=== PATIENT | female | born 1995 | race Caucasian/White ===

== ENCOUNTER → 2016-04-02 | Outpatient (CLI) | payer BC ==
--- NOTE | 2016-04-02 16:13 | US ---
EXAMINATION TYPE: US abdomen complete DATE OF EXAM: 04/02/2016 3:54 PM COMPARISON: Multiple US in PACS CLINICAL HISTORY: R10.12 ABD PAIN. LUQ pain, pt states history of mono EXAM MEASUREMENTS: Liver Length: 14.7 cm Gallbladder Wall: 0.1 cm CBD: 0.5 cm Spleen: 9.8 cm Right Kidney: 10.1 x 3.7 x 4.4 cm Left Kidney: 10.5 x 4.6 x 5.0 cm TECHNOLOGIST IMPRESSION: wnl Pancreas: wnl Liver: wnl Gallbladder: wnl Evidence for sonographic Rogel's sign: No CBD: wnl Spleen: wnl Right Kidney: wnl Left Kidney: wnl Upper IVC: wnl Abd Aorta: wnl Results called to Nando BELL at [facility] at time of exam IMPRESSION: 1. Normal abdomen ultrasound
== END | disposition home or self-care (01) ==
LOC: RADUSWWP 15:38
PROVIDERS: ATTEND Family Medicine
DX: R10.12 Left upper quadrant pain (principal)
CPT/HCPCS: 76700

== ENCOUNTER 2017-08-08 21:58 | Outpatient (CLI) | payer BC, OTHER ==
[2017-08-08 23:02] VITALS: BP 124/67; PULSE 98; RESP 15; TEMP 98
--- NOTE | 2017-08-09 00:10 | P.MSEPDOC ---
Presenting Problems - Arrival Data Date of Arrival on Unit: 08/08/17 Time of Arrival on Unit: 22:03 Mode of Transport: Ambulatory - Complaint OB-Reason for Admission/Chief Complaint: Possible Onset of Labor Comment: Patient complains of contractions since 08/07 but states they are every 7 -9 mins today Medical History - Information : 1 Para: 0 Term: 0 : 0 Abortions: Spontaneous or Elective: 0 Number of Living Children: 0 - Gestational Age Gestational Age by XAVIER (wks/days): 39 Weeks and 4 Days Review of Systems - Review of Systems Constitutional: No problems Breast: No problems ENT: No problems Cardiovascular: No problems Respiratory: No problems Gastrointestinal: No problems Genitourinary: No problems Musculoskeletal: No problems Neurological: No problems Skin: No problems Vital Signs - Temperature Temperature: 98 F Temperature Source: Oral - Pulse Pulse Oximetery Pulse Rate: 98 Pulse Assessment Method: Pulse Oximetry - Respirations Respiratory Rate: 15 Oxygen Delivery Method: Room Air O2 Sat by Pulse Oximetry: 98 - Blood Pressure Right Arm Blood Pressure: 124/67 Blood Pressure Mean: 86 Blood Pressure Source: Automatic Cuff Medical Screen Scoring (Pre) - Cervical Exam Dilation: 1-3 cm = 1 Effacement: More than 50% = 2 Membranes: Intact - Uterine Contractions Frequency: > 5 minutes apart = 1 Duration: N/A Intensity: N/A - Maternal Vital Signs Maternal Temperature: N/A Maternal Blood Pressure: N/A Signs of Preeclampsia: N/A Maternal Respirations: N/A - Pain Assessment Pain Location and Character: Abdomen Pain Scale Used: Numeric (1 - 10) Pain Intensity: 4 Pain Management Goal: 2 Pain Description: *Acute, Cramping Pain Radiation Location: none Pain Frequency: Intermittent Pain Duration: 1 Pain Duration Units: Days Pain Behavior: Fidgeting Effects of Pain: none Pain Aggravating Factors: Contractions - Maternal Trauma Maternal Trauma: N/A - Assessment Baseline FHR: 125 Heart Rate - NICHD Category: Category I (Normal) = 0 NST: Reactive Position: N/A Station: N/A - Total Score Total Score (Pre): 4 - Level of Risk Level of Risk: Low (0-5) Physician Notification (Pre) - Physician Notified Physician Notified Date: 08/08/17 Physician Notified Time: 22:30 Physician/Practitioner Notifed:: Dr Sher New Order Received: Yes Medical Screen Scoring (Post) - Cervical Exam Dilation: 1-3 cm = 1 Effacement: More than 50% = 2 Membranes: Intact - Uterine Contractions Frequency: > 5 minutes apart = 1 Duration: N/A Intensity: N/A - Maternal Vital Signs Maternal Temperature: N/A Maternal Blood Pressure: N/A Signs of Preeclampsia: N/A Maternal Respirations: N/A - Assessment Heart Rate: 125 Heart Rate - NICHD Category: Category I (Normal) = 0 NST: Reactive Position: N/A Station: N/A - Total Score Total Score (Post): 4 - Post Treatment Level of Risk Post Treatment Level of Risk: Low (0-5) Disposition - Disposition OB Disposition: Discharge to home, Written follow up instructions reviewed Discharge Date: 08/08/17 Discharge Time: 23:38 I agree with the RN Medical Screening Exam: Yes Risk & Benefit of care provided described in d/c instruction: Yes Diagnosis: FALSE LABOR AT OR AFTER 37 COMPLETED WEEKS OF GESTATION
== END 2017-08-08 23:43 | disposition home or self-care (01) ==
LOC: FBPOP 21:58
PROVIDERS: ATTEND Obstetrics & Gynecology
DX: O47.1 False labor at or after 37 completed weeks of gestation (principal); Z3A.39 39 weeks gestation of pregnancy
CPT/HCPCS: 59025; 99213

== ENCOUNTER 2017-08-09 16:40 | Inpatient (IN) | payer BC, OTHER ==
[2017-08-09] MEDS ORDERED: TERBUTALINE 1 MG/ML VIAL SQ PRN (17:50)
[2017-08-09] MEDS ORDERED: OXYTOCIN 10 UNIT/ML 1 ML VIAL IM PRN (17:50)
[2017-08-09] MEDS ORDERED: CARBOPROST TROMETHAMINE 250 MCG/ML 1 ML AMP IM PRN (17:50)
[2017-08-09] MEDS ORDERED: METHYLERGONOVINE 0.2 MG/ML 1 ML AMP IM PRN (17:50)
[2017-08-09] MEDS ORDERED: LIDOCAINE 1% (PF) 10 MG/ML (30 ML SDV) SQ PRN (17:50)
[2017-08-09 17:54] VITALS: BMI 25.6
[2017-08-09] MEDS ORDERED: OXYTOCIN 20 UNITS/1000 ML NS 1,000 ML IV SCH ×2 (18:00→23:05)
[2017-08-09 18:01] LABS: Basophils % (A) 0 %; Eosinophils # (A) 0.1 k/uL (0-0.7); Eosinophils % (A) 1 %; HCT 44.8 % (34.0-46.0); HGB 15.8 gm/dL (11.4-16.0); Lymphocytes # (A) 1.7 k/uL (1.0-4.8); Lymphocytes % (A) 11 %; MCH 31.1 pg (25.0-35.0); MCHC 35.3 g/dL (31.0-37.0); MCV 88.1 fL (80.0-100.0); Mean Platelet Volume 8.8; Monocytes # (A) 0.3 k/uL (0-1.0); Monocytes % (A) 2 %; Neutrophils % (A) 85 %; Platelet Count 154 k/uL (150-450); RBC 5.09 m/uL (3.80-5.40); RDW 13.9 % (11.5-15.5); WBC 15.3 k/uL (4.0-11.0)
[2017-08-09] MEDS: LACTATED RINGERS 1,000 ML IV SCH ×3 (18:03→19:40)
[2017-08-09] MEDS ORDERED: BUPIVACAINE (PF) 0.25% 30 ML VIAL ONE (18:35)
[2017-08-09] MEDS ORDERED: SODIUM CHLORIDE 0.9% 100 ML BAG ONE (18:35)
[2017-08-09] MEDS ORDERED: fentaNYL (PF) 50 MCG/ML 5 ML AMP ONE (18:35)
[2017-08-09] MEDS ORDERED: ROPIVACAINE 100 MG, fentaNYL (PF) 200 MCG in SODIUM CHLORIDE 0.9% 76 ML EPIDURAL ONE (19:15)
--- NOTE | 2017-08-09 20:13 | P.HPOB ---
History of Present Illness H&P Date: 08/09/17 Chief Complaint: Contractions This is a 21-year-old female 1 para 0 with an estimated date of confinement of 08/11/2017, estimated gestational age of 39-5/7 weeks, who presents to labor and delivery with complaints of contractions that began yesterday and became stronger today. She denied any rupture of membranes. care had been uncomplicated. Her initial care was with Remigio Cortez and then she transferred to Dr. Holly latent . She denies any issues. labs: Blood type-A+ Antibody screen-negative Hemoglobin-14 RPR-nonreactive Hepatitis B surface antigen-negative HIV-nonreactive GC/Chlamydia-negative Rubella-immune Cystic fibrosis screening-positive, patient states the father the baby is negative Genetic screening-within normal limits Urine drug screen-negative One hour Glucola-normal per patient Group B streptococcus-negative Obstetrical history: First Review of Systems Constitutional: Denies chills, Denies fever Eyes: denies blurred vision, denies pain Ears, nose, mouth and throat: Denies headache, Denies sore throat Cardiovascular: Denies chest pain, Denies shortness of breath Respiratory: Denies cough Gastrointestinal: Reports abdominal pain (Contractions) Genitourinary: Reports pelvic pain, Reports Musculoskeletal: Reports low back pain Integumentary: Denies pruritus, Denies rash Neurological: Denies numbness, Denies weakness Psychiatric: Denies anxiety, Denies depression Past Medical History Additional Past Medical History / Comment(s): History concussion, scoliosis History of Any Multi-Drug Resistant Organisms: None Reported Past Surgical History: Tonsillectomy Past Anesthesia/Blood Transfusion Reactions: No Reported Reaction Past Psychological History: Anxiety Smoking Status: Never smoker Past Alcohol Use History: None Reported Past Drug Use History: None Reported - Past Family History Mother Family Medical History: No Reported History Medications and Allergies Home Medications Medication Instructions Recorded Confirmed Type Pnv No.95/Ferrous Fum/Folic AC 1 each PO DAILY 08/09/17 08/09/17 History [ Multivitamin Tablet] Allergies Allergy/AdvReac Type Severity Reaction Status Date / Time No Known Allergies Allergy Verified 08/09/17 16:49 Exam Osteopathic Statement: *. No significant issues noted on an osteopathic structural exam other than those noted in the History and Physical/Consult. - Vital Signs Vital signs: Vital Signs Temp Pulse Resp BP 08/09/17 17:43 97.1 F L 63 18 118/70 08/09/17 17:20 97.0 F L 63 18 118/70 Intake and Output 08/09/17 08/09/17 08/09/17 06:59 14:59 22:59 Other: Weight 63.503 kg HEENT: Within normal limits Heart: Regular rate and rhythm Lungs: Clear to auscultation bilaterally Abdomen: Cervix: On admission is 5 cm/90%/-2 station with bulging bag heart tones: Reactive Contractions: Every 2-3 minutes Extremities: Negative Homans Results Result Diagrams: 08/09/17 17:45 Abnormal Lab Results - Last 24 Hours (Table) 08/09/17 Range/Units 17:45 WBC 15.3 H (4.0-11.0) k/uL Neutrophils # 13.0 H (1.3-7.7) k/uL Assessment and Plan (1) 39 weeks gestation of Current Visit: Yes Status: Acute Code(s): Z3A.39 - 39 WEEKS GESTATION OF SNOMED Code(s): 44798289 Plan: Admission for active labor. Epidural anesthesia if desired. Expectant management.
--- NOTE | 2017-08-09 22:57 | P.PROBDLV ---
Vaginal Delivery Note - . Vaginal Delivery Note: The patient progressed to complete dilation after artificial rupture membranes was carried out shortly after she received an epidural. At that time her heart tones dropped to the 60s and stayed down despite resuscitative measures. Therefore nursing placed a scalp lead through the membranes and rupture membranes with clear fluid. Heart tones did slowly returned to normal and anesthesia was standing by at that time. Her cervix did change fairly rapidly from 5-7 during that time frame. Overall she had an approximate 10-15 minute deceleration with slow return to baseline. Once the heart tones did return to baseline, she had good variability and accelerations. She progressed onto complete dilation and then began pushing. 's head came to a crown. With one further push, the 's head delivered across the perineum followed by the anterior shoulder and a right occiput anterior lie. Nose and mouth were bulb suctioned at the perineum. Nuchal cord times one was reduced around the 's head. With one further push, the remainder the easily delivered and was placed on mother's abdomen. Brisk cry was noted immediately. Cord was clamped and cut and infant was taken to warmer for evaluation. A viable male was noted with scores of 7 at 1 minute and 9 at 5 minutes and infant weight of 7 lbs. 6 oz. Placenta delivered shortly thereafter , intact, with a three-vessel cord. Uterus contracted fairly well after oxytocin was given and uterine massage was carried out. Inspection of the perineum revealed a right periurethral laceration. This area was anesthetized with 1% lidocaine and then sutured with 3-0 Vicryl suture in a running locked fashion. She also did have a left periurethral laceration that was noted to be hemostatic. Estimated blood loss is approximately 200 mL's. Both mother and infant are in stable condition.
--- NOTE | 2017-08-09 22:59 | P.MSEPDOC ---
Presenting Problems - Arrival Data Date of Arrival on Unit: 08/09/17 Time of Arrival on Unit: 16:40 Mode of Transport: Ambulatory - Complaint OB-Reason for Admission/Chief Complaint: Possible Onset of Labor, Pain Comment: contractions Medical History - Information : 1 Para: 0 Term: 0 : 0 Abortions: Spontaneous or Elective: 0 Number of Living Children: 0 - Gestational Age Gestational Age by XAVIER (wks/days): 39 Weeks and 5 Days Review of Systems - Review of Systems Constitutional: No problems Breast: No problems ENT: No problems Cardiovascular: No problems Respiratory: No problems Gastrointestinal: No problems Genitourinary: No problems Musculoskeletal: No problems Neurological: No problems Skin: No problems Vital Signs - Temperature Temperature: 97.1 F - Pulse Right Brachial Pulse Rate: 63 Pulse Assessment Method: Automatic Cuff - Respirations Respiratory Rate: 18 Oxygen Delivery Method: Room Air - Blood Pressure Right Arm Blood Pressure: 118/70 Blood Pressure Mean: 86 Blood Pressure Source: Automatic Cuff Medical Screen Scoring (Pre) - Cervical Exam Dilation: 4-7 cm = 2 Effacement: More than 50% = 2 Membranes: Intact - Uterine Contractions Frequency: > or = 36 weeks =2 Duration: > 40 seconds = 2 Intensity: Contraction palpated strong = 1 - Maternal Vital Signs Maternal Temperature: N/A Maternal Blood Pressure: N/A Signs of Preeclampsia: N/A Maternal Respirations: N/A - Pain Assessment Pain Location and Character: Abdomen Pain Scale Used: Numeric (1 - 10) Pain Intensity: 8 Pain Management Goal: 3 Pain Description: *Acute Pain Frequency: Intermittent Pain Behavior: Facial Grimacing, Guarding, Moving Slowly Pain Aggravating Factors: Contractions Pain Interventions: Non-Nutritive Sucking - Maternal Trauma Maternal Trauma: N/A - Assessment Heart Rate - NICHD Category: Category I (Normal) = 0 NST: Reactive Position: N/A Station: N/A - Total Score Total Score (Pre): 9 - Level of Risk Level of Risk: Medium (6-9) Physician Notification (Pre) - Physician Notified Physician Notified Date: 08/09/17 Physician Notified Time: 17:21 Physician/Practitioner Notifed:: Dr. Sher Spoke With: Dr. Sher New Order Received: Yes - Notification Comment Comment: Lizbeth Terry spoke with Dr. Sher and orders to admit for labor Disposition - Disposition OB Disposition: Admit, LDRP Suite I agree with the RN Medical Screening Exam: Yes Risk & Benefit of care provided described in d/c instruction: Yes Diagnosis: ENCOUNTER FOR FULL-TERM UNCOMPLICATED DELIVERY
[2017-08-09] MEDS ORDERED: diphenhydrAMINE 25 MG CAP PO PRN (23:05)
[2017-08-09] MEDS ORDERED: WITCH HAZEL 1 EACH MED..PAD TOPICAL PRN (23:05)
[2017-08-09] MEDS ORDERED: BENZOCAINE/MENTHOL SPRAY 1 GM/SPRAY AEROSOL TOPICAL PRN (23:05)
[2017-08-09] MEDS ORDERED: LANOLIN CREAM 5 GM TUBE TOPICAL PRN (23:05)
[2017-08-09] MEDS ORDERED: diphenhydrAMINE 50 MG/ML 1 ML VIAL IVP PRN ×2 (23:05)
[2017-08-09] MEDS ORDERED: diphenhydrAMINE 50 MG CAP PO PRN (23:05)
[2017-08-09] MEDS ORDERED: ZOLPIDEM 5 MG TAB PO PRN (23:05)
[2017-08-09] MEDS ORDERED: SIMETHICONE 80 MG CHEWABLE PO PRN (23:05)
[2017-08-09] MEDS ORDERED: HYDROCORTISONE 2.5% RECTAL CREAM 30 GM TUBE RECTAL PRN (23:05)
[2017-08-09] MEDS: IBUPROFEN 600 MG TAB PO PRN (23:47)
[2017-08-10] MEDS: ACETAMINOPHEN TAB 325 MG TAB PO PRN ×3 (02:53→23:39)
--- NOTE | 2017-08-10 08:01 | P.PNOBGVD ---
Subjective - Subjective Principal diagnosis: Status post vaginal delivery day #1 Interval history: Patient is doing well. She is breast-feeding. Lochia is decreasing. Pain is fairly well controlled. Patient reports: Reports appetite normal, Reports voiding normally, Reports pain well controlled, Reports ambulating normally : doing well, nursing well Objective - Latest Vital Signs Latest vital signs: Vital Signs Temp Pulse Resp BP 08/10/17 07:58 97.5 F L 79 16 120/79 08/10/17 03:21 97.9 F 69 16 116/61 08/10/17 01:02 98.0 F 75 18 119/74 08/10/17 00:32 98.2 F 96 18 125/81 08/10/17 00:09 96 18 117/69 08/09/17 23:54 98.9 F 83 18 121/70 08/09/17 23:39 98.9 F 88 18 128/64 08/09/17 23:25 97.6 F 104 H 18 134/60 08/09/17 23:09 102 H 18 133/65 08/09/17 22:59 97.1 F L 63 18 118/70 08/09/17 22:51 97.0 F L 104 H 16 136/61 08/09/17 17:43 97.1 F L 63 18 118/70 08/09/17 17:20 97.0 F L 63 18 118/70 Intake and Output 08/09/17 08/10/17 08/10/17 22:59 06:59 14:59 Intake Total 2000 Balance 1999 Intake: IV 2000 Lactated Ringers 1,000 ml 2000 @ 125 mls/hr IV .Q8H [facility] Rx#:[id number] Other: # Voids 1 1 Weight 63.503 kg - Exam Extremities: Present: normal. Absent: tenderness Abdomen: Present: normal appearance, soft. Absent: distention, tenderness Uterus: Present: normal, firm. Absent: tenderness - Labs Labs: Abnormal Lab Results - Last 24 Hours (Table) 08/09/17 Range/Units 17:45 WBC 15.3 H (4.0-11.0) k/uL Neutrophils # 13.0 H (1.3-7.7) k/uL Assessment and Plan Assessment: Impression is status post vaginal delivery day #1 (1) 39 weeks gestation of Current Visit: Yes Status: Acute Code(s): Z3A.39 - 39 WEEKS GESTATION OF SNOMED Code(s): 05440978 Plan: Continue with care today and anticipate discharge home tomorrow.
[2017-08-10] MEDS: IBUPROFEN 600 MG TAB PO PRN ×2 (08:58→19:18)
[2017-08-10] MEDS: SENNOSIDES-DOCUSATE SODIUM 1 EACH TAB PO SCH ×2 (08:59→20:20)
[2017-08-10 09:47] LABS: Basophils % (A) 0 %; Eosinophils # (A) 0.1 k/uL (0-0.7); Eosinophils % (A) 0 %; HCT 35.8 % (34.0-46.0); Lymphocytes # (A) 1.7 k/uL (1.0-4.8); Lymphocytes % (A) 12 %; MCH 30.8 pg (25.0-35.0); MCHC 34.6 g/dL (31.0-37.0); MCV 89.2 fL (80.0-100.0); Mean Platelet Volume 7.9; Monocytes # (A) 0.5 k/uL (0-1.0); Monocytes % (A) 4 %; Neutrophils # (A) 11.5 k/uL (1.3-7.7); Neutrophils % (A) 83 %; Platelet Count 129 k/uL (150-450); RBC 4.02 m/uL (3.80-5.40); RDW 14.1 % (11.5-15.5); WBC 13.9 k/uL (4.0-11.0)
[2017-08-10 09:55] LABS: HGB 12.4 gm/dL (11.4-16.0)
[2017-08-11] MEDS: IBUPROFEN 600 MG TAB PO PRN (07:53)
[2017-08-11] MEDS: SENNOSIDES-DOCUSATE SODIUM 1 EACH TAB PO SCH (07:53)
--- NOTE | 2017-08-11 08:48 | P.DS ---
Providers Date of admission: 08/09/17 17:20 Expected date of discharge: 08/11/17 Attending physician: Madi Holly Primary care physician: Madi Holly Hospital Course: Patient is doing very well day 2. She is involuting, voiding, and she is tolerating her diet. She voices no complaints. Vital signs are stable and afebrile. Heart regular, lungs clear, extremities without pain. Prescription for Motrin has been provided. It is noted that her abdomen is soft positive bowel sounds noted and her uterus is firm below the umbilicus. Lochia is are also were reported to be light. We'll plan discharged home today. Prescription for Motrin was provided. We'll follow up with me in 6 weeks. Discharge instructions thoroughly reviewed and all questions were answered for her prior to her discharge. She is stable for discharge at this time. Patient Condition at Discharge: Good Plan - Discharge Summary Discharge Rx Participant: No New Discharge Prescriptions: New Ibuprofen [Motrin] 600 mg PO Q6HR PRN #30 tab PRN Reason: Pain No Action Pnv No.95/Ferrous Fum/Folic AC [ Multivitamin Tablet] 1 each PO DAILY Discharge Medication List Pnv No.95/Ferrous Fum/Folic AC [ Multivitamin Tablet] 1 each PO DAILY [History] Ibuprofen [Motrin] 600 mg PO Q6HR PRN #30 tab 08/11/17 [Rx] Follow up Appointment(s)/Referral(s): Madi Holly DO [Primary Care Provider] - 6 Weeks Activity/Diet/Wound Care/Special Instructions: No heavy lifting, limit stairs and driving, and pelvic rest. If any high temperatures, heavy bleeding, or severe pain call my office Discharge Disposition: HOME SELF-CARE
[2017-08-11 09:14] VITALS: BP 119/64; PULSE 59; RESP 18; TEMP 98.1
--- NOTE | 2017-08-12 08:01 | P.MSEPDOC ---
Presenting Problems - Arrival Data Date of Arrival on Unit: 08/09/17 Time of Arrival on Unit: 17:20 Mode of Transport: Ambulatory - Complaint OB-Reason for Admission/Chief Complaint: Possible Onset of Labor, Pain Comment: contractions Medical History - Information : 1 Para: 0 Term: 0 : 0 Abortions: Spontaneous or Elective: 0 Number of Living Children: 0 - Gestational Age Gestational Age by XAVIER (wks/days): 39 Weeks and 5 Days Review of Systems - Review of Systems Constitutional: No problems Breast: No problems ENT: No problems Cardiovascular: No problems Respiratory: No problems Gastrointestinal: No problems Genitourinary: No problems Musculoskeletal: No problems Neurological: No problems Skin: No problems Vital Signs - Temperature Temperature: 98.1 F Temperature Source: Oral - Pulse Right Brachial Pulse Rate: 59 Pulse Assessment Method: Automatic Cuff - Respirations Respiratory Rate: 18 Oxygen Delivery Method: Room Air O2 Sat by Pulse Oximetry: 96 - Blood Pressure Right Arm Blood Pressure: 119/64 Blood Pressure Mean: 82 Blood Pressure Source: Automatic Cuff Medical Screen Scoring (Pre) - Cervical Exam Dilation: 4-7 cm = 2 Effacement: More than 50% = 2 Membranes: Intact - Uterine Contractions Frequency: > or = 36 weeks =2 Duration: > 40 seconds = 2 Intensity: Contraction palpated strong = 1 - Maternal Vital Signs Maternal Temperature: N/A Maternal Blood Pressure: N/A Signs of Preeclampsia: N/A Maternal Respirations: N/A - Pain Assessment Pain Location and Character: Abdomen Pain Scale Used: Numeric (1 - 10) Pain Intensity: 8 Pain Management Goal: 3 Pain Description: *Acute Pain Frequency: Intermittent Pain Behavior: Facial Grimacing, Guarding, Moving Slowly Pain Aggravating Factors: Contractions Pain Interventions: Non-Nutritive Sucking - Maternal Trauma Maternal Trauma: N/A - Assessment Heart Rate - NICHD Category: Category I (Normal) = 0 NST: Reactive Position: N/A Station: N/A - Total Score Total Score (Pre): 9 - Level of Risk Level of Risk: Medium (6-9) Physician Notification (Pre) - Physician Notified Physician Notified Date: 08/09/17 Physician Notified Time: 17:21 Physician/Practitioner Notifed:: Dr. Sher Spoke With: Dr. Sher New Order Received: Yes - Notification Comment Comment: Lizbeth Terry spoke with Dr. Sher and orders to admit for labor Disposition - Disposition OB Disposition: Admit, LDRP Suite Discharge Date: 08/11/17 Discharge Time: 15:08 I agree with the RN Medical Screening Exam: Yes Risk & Benefit of care provided described in d/c instruction: Yes Diagnosis: RELATED CONDITIONS, UNSPECIFIED, THIRD TRIMESTER
== END 2017-08-11 15:09 | disposition home or self-care (01) | DRG 775 ==
LOC: FBPOP 16:40 → 4FBP 17:20
PROVIDERS: ADMIT Obstetrics & Gynecology; ATTEND Obstetrics & Gynecology
PROC: 10E0XZZ Delivery of Products of Conception, External Approach (ICD-10-PCS; principal; 2017-08-09)
PROC: 0UQMXZZ Repair Vulva, External Approach (ICD-10-PCS; 2017-08-09)
PROC: 3E0R3BZ Introduction of Anesthetic Agent into Spinal Canal, Percutaneous Approach (ICD-10-PCS; 2017-08-09)
PROC: 00HU33Z Insertion of Infusion Device into Spinal Canal, Percutaneous Approach (ICD-10-PCS; 2017-08-09)
PROC: 4A1H74Z Monitoring of Products of Conception, Cardiac Electrical Activity, Via Natural or Artificial Opening (ICD-10-PCS; 2017-08-09)
PROC: 10H073Z Insertion of Monitoring Electrode into Products of Conception, Via Natural or Artificial Opening (ICD-10-PCS; 2017-08-09)
DX: O69.81X0 Labor and delivery complicated by cord around neck, without compression, not applicable or unspecified (principal); M41.9 Scoliosis, unspecified; O76 Abnormality in fetal heart rate and rhythm complicating labor and delivery; Z37.0 Single live birth; O71.82 Other specified trauma to perineum and vulva; J45.990 Exercise induced bronchospasm; Z3A.39 39 weeks gestation of pregnancy; Z79.899 Other long term (current) drug therapy; Z86.59 Personal history of other mental and behavioral disorders
CPT/HCPCS: 59025; 85025; 88307; 99213

== ENCOUNTER → 2018-07-07 | Outpatient (CLI) | payer BC, OTHER | LOC: LABWHC1 16:04 | PROVIDERS: ATTEND Obstetrics & Gynecology | DX: N91.2 Amenorrhea, unspecified (principal) | CPT/HCPCS: 36415; 84702 ==

== ENCOUNTER → 2018-10-13 | Outpatient (CLI) | payer BC, OTHER | END | disposition home or self-care (01) | LOC: LABWHC1 08:08 | PROVIDERS: ATTEND Obstetrics & Gynecology | DX: N92.6 Irregular menstruation, unspecified (principal) | CPT/HCPCS: 36415; 84702 ==

== ENCOUNTER → 2020-07-21 | Outpatient (CLI) | payer BC, OTHER ==
--- NOTE | 2020-07-21 15:21 | NM ---
EXAMINATION TYPE: NM hepatobiliary w EF DATE OF EXAM: 07/21/2020 COMPARISON: Ultrasound abdomen 04/02/2016 HISTORY: Right upper quadrant pain TECHNIQUE: After the intravenous administration of 4.7 mCi Tc 99m Mebrofenin hepatobiliary scintigrap hy is performed. Immediate images post injection. FINDINGS: There is satisfactory initial accumulation of tracer by the liver. The gallbladder is visualized wit hin 12 minutes. The small bowel activity is noted within 40 minutes. At one hour 8 ounces of oral e nsure plus is given to mimic CCK and gallbladder ejection fraction is calculated at 75 %, in the norm al range. Therefore there is no scintigraphic evidence of cystic or common bile duct obstruction to suggest acute cholecystitis or gallbladder dyskinesia. IMPRESSION: Exam is within normal limits.
== END | disposition home or self-care (01) ==
LOC: RADNMMAIN 12:52
PROVIDERS: ATTEND Family Medicine
DX: R10.11 Right upper quadrant pain (principal)
CPT/HCPCS: 78226; A9537

== ENCOUNTER 2022-06-18 12:09 | Outpatient (CLI) | payer BC, OTHER ==
[2022-06-18 15:00] VITALS: BP 136/60; PULSE 93; RESP 17; TEMP 97.2
--- NOTE | 2022-06-20 05:00 | P.MSEPDOC ---
Presenting Problems - Arrival Data Date of Arrival on Unit: 06/18/22 Time of Arrival on Unit: 12:09 Mode of Transport: Ambulatory - Complaint OB-Reason for Admission/Chief Complaint: Rule Out PROM Comment: pt thought she had possible gush of fluid at 1145 today, no leaking since, wanted to rule out ROM Medical History - Information : 2 Para: 1 Term: 1 : 0 Abortions: Spontaneous or Elective: 0 Number of Living Children: 1 - Gestational Age Gestational Age by XAVIER (wks/days): 34 Weeks and 6 Days Review of Systems - Review of Systems Constitutional: No problems Breast: No problems ENT: No problems Cardiovascular: No problems Respiratory: No problems Gastrointestinal: No problems Genitourinary: No problems Musculoskeletal: No problems Neurological: No problems Skin: No problems Vital Signs - Temperature Temperature: 97.2 F Temperature Source: Temporal Artery Scan - Pulse Right Brachial Pulse Rate: 93 Pulse Assessment Method: Automatic Cuff - Respirations Respiratory Rate: 17 Oxygen Delivery Method: Room Air - Blood Pressure Right Arm Blood Pressure: 136/60 Blood Pressure Mean: 85 Blood Pressure Source: Automatic Cuff Medical Screen Scoring - Cervical Exam Dilation (cm): 1 Effacement (%): 50 Station: -3 Membranes: Intact - Uterine Contractions Intensity: Mild Resting: Soft to palpation - Assessment - Baby A Baseline FHR: 125 Heart Rate - NICHD Category: Category I (Normal) NST: Reactive Physician Notification - Physician Notified Physician Notified Date: 06/18/22 Physician Notified Time: 12:45 Physician: Dru Vang New Order Received: Yes - Notification Comment Comment: reactive nst, amniosure negative, pt has appt with Dr. Vang tomorrow, Maternal Triage Index - Maternal Triage Index Presenting for scheduled procedure w/no complaint: No - Stat/Priority 1 Stat Priority 1: No - Urgent/Priority 2 Urgent Priority 2: Yes Provider Notified: Dru Vang Provider Notified Time: 12:45 Criteria Met for Priority 2: pt thought she had possible gush of fluid at 1145 today, no leaking since, wanted to rule out ROM Disposition - Disposition OB Disposition: Triage, Discharge to home, Written follow up instructions reviewed Discharge Date: 06/18/22 Discharge Time: 13:40 I agree with the RN Medical Screening Exam: Yes Case reviewed; plan agreed upon as documented in EMR&OBIX.: Yes Diagnosis: FALSE LABOR BEFORE 37 COMPLETED WEEKS OF GEST, THIRD TRI
== END 2022-06-18 13:40 | disposition home or self-care (01) ==
LOC: FBPOP 12:09
PROVIDERS: ATTEND Obstetrics & Gynecology
DX: O47.03 False labor before 37 completed weeks of gestation, third trimester (principal); Z3A.34 34 weeks gestation of pregnancy
CPT/HCPCS: 59025; 84112; 99213

== ENCOUNTER 2022-07-17 07:22 | Inpatient (IN) | payer OTHER, BC ==
[2022-07-17] MEDS ORDERED: TRANEXAMIC ACID IN NACL,ISO-OS 1,000 MG in EMPTY BAG 1 BAG IV PRN (07:48)
[2022-07-17] MEDS ORDERED: miSOPROStoL 200 MCG TAB PO PRN (07:48)
[2022-07-17] MEDS ORDERED: OXYTOCIN 10 UNIT/ML 1 ML VIAL IM PRN (07:48)
[2022-07-17] MEDS ORDERED: CARBOPROST TROMETHAMINE 250 MCG/ML 1 ML AMP IM PRN (07:48)
[2022-07-17] MEDS ORDERED: TERBUTALINE 1 MG/ML VIAL SQ PRN (07:48)
[2022-07-17] MEDS ORDERED: LIDOCAINE 0.5% (PF) 5 MG/ML (50 ML SDV) SQ PRN (07:48)
[2022-07-17] MEDS ORDERED: METHYLERGONOVINE 0.2 MG/ML 1 ML AMP IM PRN (07:48)
[2022-07-17] MEDS ORDERED: OXYTOCIN 30 UNITS/500 ML NS 30 UNIT in SALINE 1 500ML.BAG IV SCH ×2 (08:00→10:58)
--- NOTE | 2022-07-17 08:14 | P.HPOB ---
History of Present Illness H&P Date: 07/17/22 Chief Complaint: Contractions This patient is a pleasant 26-year-old 2 para 1 female estimated date of confinement 07/24/2022 estimated gestational age 39 weeks who presents to labor and delivery with complaints of regular painful contractions since 1:00 this morning. Patient was 2 cm dilated and office last week and is now 5 cm dilated thought to be in active labor. Patient's care is such that she transferred [place] [facility] at approximately 31 weeks from [place] due to social issues (). Patient's was complicated by a subchorionic hemorrhage versus abruption was noted by her other physician. Patient had regular growth ultrasounds with my office and has had regular testing without evidence of compromise. Patient's care has otherwise been uncomplicated. Review of Systems Genitourinary: Reports Menstruation: Reports amenorrhea Past Medical History Past Medical History: No Reported History Additional Past Medical History / Comment(s): History concussion, scoliosis; patient has had a previous term vaginal delivery History of Any Multi-Drug Resistant Organisms: None Reported Past Surgical History: Tonsillectomy Past Anesthesia/Blood Transfusion Reactions: No Reported Reaction Past Psychological History: No Psychological Hx Reported Smoking Status: Never smoker Past Alcohol Use History: None Reported Past Drug Use History: None Reported - Past Family History Mother Family Medical History: No Reported History Medications and Allergies Home Medications Medication Instructions Recorded Confirmed Type Pnv No.95/Ferrous Fum/Folic AC 1 each PO DAILY 08/09/17 06/18/22 History [ Multivitamin Tablet] Sertraline HCl [Zoloft] 50 mg PO DAILY 06/18/22 06/18/22 History Allergies Allergy/AdvReac Type Severity Reaction Status Date / Time No Known Allergies Allergy Verified 06/18/22 12:43 Exam Intake and Output 07/16/22 07/17/22 07/17/22 22:59 06:59 14:59 Other: Weight 66.678 kg - OBG Physical Exam Abdomen: bowel sounds normal, no diffuse tenderness, no bruit present, no guarding noted, no hepatomegaly, no splenomegaly, no mass Vulva: both: normal Vagina: normal moisture, no discharge Cervix: no lesion (cervix is 5 cm dilated 70% effaced), no discharge Uterus: enlarged Results labs: blood type is B positive, rubella immune, RPR is nonreactive, hepatitis B and C negative, HIV is nonreactive, Glucola was normal, most recent growth ultrasound showed baby 5 lbs. 8 oz. with normal anatomy. Group B strep was negative Assessment and Plan Assessment: This is a pleasant 26-year-old 2 para 1 female 39 weeks gestation who is in active labor. Artificial rupture membranes does show mild to moderate meconium-stained fluid. heart tones are category 1. Plan at this time is pain control per patient request and anticipate vaginal delivery. We will alert the cigar packing examiner anesthesia staff in regards the meconium-stained fluid. (1) Normal labor Current Visit: Yes Status: Acute Code(s): O80 - ENCOUNTER FOR FULL-TERM UNCOMPLICATED DELIVERY; Z37.9 - OUTCOME OF DELIVERY, UNSPECIFIED SNOMED Code(s): 93456733 (2) Meconium in amniotic fluid Current Visit: Yes Status: Acute Code(s): P96.83 - MECONIUM STAINING SNOMED Code(s): 642243670 (3) 39 weeks gestation of Current Visit: No Status: Acute Code(s): Z3A.39 - 39 WEEKS GESTATION OF SNOMED Code(s): 43827613
[2022-07-17 08:17] LABS: Basophils % (A) 0 %; Eosinophils # (A) 0.1 k/uL (0-0.7); Eosinophils % (A) 1 %; HCT 39.6 % (34.0-46.0); HGB 13.6 gm/dL (11.4-16.0); Lymphocytes # (A) 2.1 k/uL (1.0-4.8); Lymphocytes % (A) 20 %; MCH 29.4 pg (25.0-35.0); MCHC 34.4 g/dL (31.0-37.0); MCV 85.5 fL (80.0-100.0); Mean Platelet Volume 8.6; Monocytes # (A) 0.4 k/uL (0-1.0); Monocytes % (A) 4 %; Neutrophils # (A) 7.9 k/uL (1.3-7.7); Neutrophils % (A) 75 %; Platelet Count 160 k/uL (150-450); RBC 4.63 m/uL (3.80-5.40); RDW 13.9 % (11.5-15.5); WBC 10.6 k/uL (3.8-10.6)
[2022-07-17] MEDS ORDERED: fentaNYL (PF) 50 MCG/ML 5 ML AMP ONE (08:26)
[2022-07-17] MEDS ORDERED: ROPIVACAINE 5 MG/ML 20 ML AMPULE ONE (08:26)
[2022-07-17] MEDS ORDERED: SODIUM CHLORIDE 0.9% 100 ML BAG ONE (08:26)
[2022-07-17] MEDS: LACTATED RINGERS 1,000 ML IV SCH ×2 (08:33→08:56)
[2022-07-17] MEDS ORDERED: ACETAMINOPHEN ORAL SUSP 160 MG/5 ML CUP PO PRN (10:58)
[2022-07-17] MEDS ORDERED: BENZOCAINE/MENTHOL SPRAY 1 GM/SPRAY AEROSOL TOPICAL PRN (10:58)
[2022-07-17] MEDS ORDERED: diphenhydrAMINE 25 MG CAP PO PRN (10:58)
[2022-07-17] MEDS ORDERED: HYDROCORTISONE 2.5% RECTAL CREAM 30 GM TUBE RECTAL PRN (10:58)
[2022-07-17] MEDS ORDERED: bisacodyL 10 MG SUPP RECTAL PRN (10:58)
[2022-07-17] MEDS ORDERED: SIMETHICONE 80 MG CHEWABLE PO PRN (10:58)
[2022-07-17] MEDS ORDERED: diphenhydrAMINE 50 MG/ML 1 ML VIAL IVP PRN (10:58)
[2022-07-17] MEDS ORDERED: LANOLIN CREAM 5 GM TUBE TOPICAL PRN (10:58)
[2022-07-17] MEDS ORDERED: ZOLPIDEM 5 MG TAB PO PRN (10:58)
[2022-07-17] MEDS: IBUPROFEN 600 MG TAB PO PRN ×2 (11:28→19:18)
--- NOTE | 2022-07-17 12:18 | P.PROBDLV ---
Vaginal Delivery Note - . Vaginal Delivery Note: Normal spontaneous vaginal delivery viable male infant Apgars 8 and 9 delivery time was 1043 hrs. Please see dictated H&P for intimate details of this patient's admission. In brief summary this is a pleasant 26-year-old 2 para 1 female 39-0/7 weeks gestation admitted to labor and delivery complaints of contractions since 1 AM. On admission patient is 5 cm dilated has artificial rupture membranes for moderate meconium-stained fluid. heart tones are category 1. Labor progresses and she does get an epidural for pain control. Patient thereafter quickly goes to complete pushes the head to the perineum. Posterior perineum is supported we have controlled delivery of the infant's head over the intact perineum. Mouth and nares are bulb suctioned. Data Entry Operator is present for delivery. There is no evidence of a nuchal cord. With gentle downward traction we then have delivery the anterior posterior shoulder and rest this 's body. This is a vigorous viable male infant Apgars are 8 and 9 delivery time was 1043 hrs. After delivery of the the is laid on the mother's abdomen. After the cord is then pulsating, it is doubly clamped and cut. Placenta is then spontaneously delivered intact. Inspection of perineum shows no lacerations and no repairs required. All counts are correct 3. There are no complications. Infant and mother are stable in delivery room.
[2022-07-17] MEDS: ACETAMINOPHEN TAB 325 MG TAB PO PRN ×2 (13:39→20:22)
[2022-07-17] MEDS: SENNOSIDES-DOCUSATE SODIUM 1 EACH TAB PO SCH (23:31)
[2022-07-18] MEDS: SERTRALINE 50 MG TAB PO SCH ×2 (00:04→22:01)
[2022-07-18] MEDS: SENNOSIDES-DOCUSATE SODIUM 1 EACH TAB PO SCH ×2 (02:32→20:13)
[2022-07-18] MEDS: IBUPROFEN 600 MG TAB PO PRN ×4 (02:33→22:01)
[2022-07-18] MEDS: ACETAMINOPHEN TAB 325 MG TAB PO PRN ×3 (05:16→18:50)
--- NOTE | 2022-07-18 06:29 | P.PNOBGVD ---
Subjective - Subjective Patient reports: Reports appetite normal, Reports voiding normally, Reports pain well controlled, Reports ambulating normally : doing well, in NICU (Patient is requiring some oxygen in special care) Objective - Latest Vital Signs Latest vital signs: Vital Signs Temp Pulse Resp BP 07/18/22 00:00 97.5 F L 71 16 106/58 07/17/22 20:00 98 F 71 16 119/72 07/17/22 15:13 98.1 F 80 18 121/65 07/17/22 12:55 98.2 F 74 18 124/75 07/17/22 12:25 98.3 F 64 18 118/76 07/17/22 11:55 98.6 F 68 18 128/71 07/17/22 11:40 98.4 F 69 18 123/70 07/17/22 11:25 80 133/70 07/17/22 11:10 98.0 F 77 18 121/77 07/17/22 10:55 98.5 F 85 18 119/78 07/17/22 07:48 97.4 F L 82 18 141/78 Intake and Output 07/17/22 07/17/22 07/18/22 14:59 22:59 06:59 Intake Total 194.833 Output Total 245 Balance 194.833 -245 Intake: Intake, IV Titration 194.833 Amount Oxytocin 30 Units/500 ml 194.833 Ns 30 unit In Saline 1 500ml.bag @ Per Protocol IV .Q0M [facility] Rx#:[id number] Output: Output, Quantitative 245 Blood Loss Other: # Voids 1 1 Weight 66.678 kg - Exam Lungs: bilateral: normal Chest: Normal S1, Normal S2 Extremities: Present: normal Abdomen: Present: normal appearance, soft Uterus: Present: normal, firm - Labs Labs: Abnormal Lab Results - Last 24 Hours (Table) 07/17/22 Range/Units 07:50 Neutrophils # 7.9 H (1.3-7.7) k/uL Assessment and Plan Assessment: day #1. Patient is resting without complaints. Vital signs are stable she's afebrile. Uterus is firm nontender she's having normal lochia. Baby did have some mild respiratory issues is receiving some oxygen special care most likely will come out today. Plan is to continue routine care discharge home tomorrow (1) Normal labor Current Visit: Yes Status: Acute Code(s): O80 - ENCOUNTER FOR FULL-TERM UNCOMPLICATED DELIVERY; Z37.9 - OUTCOME OF DELIVERY, UNSPECIFIED SNOMED Code(s): 19367176 (2) Meconium in amniotic fluid Current Visit: Yes Status: Acute Code(s): P96.83 - MECONIUM STAINING SNOMED Code(s): 110782921 (3) 39 weeks gestation of Current Visit: No Status: Acute Code(s): Z3A.39 - 39 WEEKS GESTATION OF SNOMED Code(s): 04974766
[2022-07-18 06:35] LABS: Basophils % (A) 0 %; Eosinophils # (A) 0.1 k/uL (0-0.7); Eosinophils % (A) 1 %; HCT 37.9 % (34.0-46.0); HGB 12.7 gm/dL (11.4-16.0); Lymphocytes # (A) 2.6 k/uL (1.0-4.8); Lymphocytes % (A) 23 %; MCH 29.5 pg (25.0-35.0); MCHC 33.6 g/dL (31.0-37.0); MCV 87.9 fL (80.0-100.0); Mean Platelet Volume 8.6; Monocytes # (A) 0.5 k/uL (0-1.0); Monocytes % (A) 4 %; Neutrophils # (A) 7.9 k/uL (1.3-7.7); Neutrophils % (A) 70 %; Platelet Count 152 k/uL (150-450); RBC 4.31 m/uL (3.80-5.40); RDW 14.1 % (11.5-15.5); WBC 11.2 k/uL (3.8-10.6)
[2022-07-18 08:55] VITALS: TEMP 97.8
[2022-07-19] MEDS: ACETAMINOPHEN TAB 325 MG TAB PO PRN ×2 (01:15→07:19)
[2022-07-19] MEDS: IBUPROFEN 600 MG TAB PO PRN ×2 (05:00→13:30)
--- NOTE | 2022-07-19 06:26 | P.PNOBGVD ---
Subjective - Subjective Patient reports: Reports appetite normal, Reports voiding normally, Reports pain well controlled, Reports ambulating normally : doing well, in NICU Objective - Latest Vital Signs Latest vital signs: Vital Signs Temp Pulse Resp BP Pulse Ox 07/19/22 00:00 97.8 F 86 16 124/82 07/18/22 16:00 97.8 F 67 16 121/83 07/18/22 08:45 97.8 F 92 16 120/73 99 Intake and Output 07/18/22 07/18/22 07/19/22 14:59 22:59 06:59 Other: # Voids 1 1 1 - Exam Lungs: bilateral: normal Chest: Normal S1, Normal S2 Extremities: Present: normal Abdomen: Present: normal appearance, soft Uterus: Present: normal, firm - Labs Labs: Abnormal Lab Results - Last 24 Hours (Table) 07/18/22 Range/Units 05:53 WBC 11.2 H (3.8-10.6) k/uL Neutrophils # 7.9 H (1.3-7.7) k/uL Assessment and Plan Assessment: day #2. Patient continues to well without complaints. Vital signs are stable she's afebrile. Uterus is firm nontender she's having normal lochia. My impression this is a normal course. Plan is to continue routine care discharge home later today. (1) Normal labor Current Visit: Yes Status: Acute Code(s): O80 - ENCOUNTER FOR FULL-TERM UNCOMPLICATED DELIVERY; Z37.9 - OUTCOME OF DELIVERY, UNSPECIFIED SNOMED Code(s): 36854182 (2) Meconium in amniotic fluid Current Visit: Yes Status: Acute Code(s): P96.83 - MECONIUM STAINING SNOMED Code(s): 758248350 (3) 39 weeks gestation of Current Visit: No Status: Acute Code(s): Z3A.39 - 39 WEEKS GESTATION OF SNOMED Code(s): 06889709
--- NOTE | 2022-07-19 06:29 | P.DS ---
Providers Date of admission: 07/17/22 07:41 Expected date of discharge: 07/19/22 Attending physician: Dru Vang Primary care physician: Stated None - Discharge Diagnosis(es) (1) Normal labor Current Visit: Yes Status: Acute (2) Meconium in amniotic fluid Current Visit: Yes Status: Acute (3) 39 weeks gestation of Current Visit: No Status: Acute Hospital Course: Please see dictated H&P for intimate details of this patient's admission. Brief summary this pleasant 26-year-old 2 para 1 female 39 weeks gestation admitted to labor and delivery in active labor. Patient quickly goes on have a vaginal delivery viable male . Please see dictated delivery note. hemorrhage 2 patient's felt be stable for discharge home follow up with me in 6 weeks. Procedures: Normal spontaneous vaginal delivery Patient Condition at Discharge: Good Plan - Discharge Summary New Discharge Prescriptions: New Ibuprofen [Motrin] 600 mg PO Q6HR PRN #40 tab PRN Reason: Mild Pain (Scale 1 To 3) No Action Pnv No.95/Ferrous Fum/Folic AC [ Multivitamin Tablet] 1 each PO DAILY Sertraline HCl [Zoloft] 50 mg PO DAILY Discharge Medication List Pnv No.95/Ferrous Fum/Folic AC [ Multivitamin Tablet] 1 each PO DAILY 08/09/17 [History] Sertraline HCl [Zoloft] 50 mg PO DAILY 06/18/22 [History] Ibuprofen [Motrin] 600 mg PO Q6HR PRN #40 tab 07/19/22 [Rx] Follow up Appointment(s)/Referral(s): Dru Vang MD [STAFF PHYSICIAN] - 08/27/22 9:30 am Patient Instructions/Handouts: Vaginal Delivery (DC) Activity/Diet/Wound Care/Special Instructions: No intercourse or anything per vagina for 6 weeks. Please call if any fever, chills, excessive vaginal bleeding, and/or abdominal pain Discharge Disposition: HOME SELF-CARE
[2022-07-19] MEDS: SENNOSIDES-DOCUSATE SODIUM 1 EACH TAB PO SCH (07:18)
[2022-07-19 07:43] VITALS: BP 109/74; PULSE 94; RESP 18
== END 2022-07-19 13:30 | disposition home or self-care (01) | DRG 807 ==
LOC: FBPOP 07:22 → 4FBP 07:41
PROVIDERS: ADMIT Obstetrics & Gynecology; ATTEND Obstetrics & Gynecology
PROC: 10E0XZZ Delivery of Products of Conception, External Approach (ICD-10-PCS; principal; 2022-07-17)
DX: O77.0 Labor and delivery complicated by meconium in amniotic fluid (principal); Z37.0 Single live birth; M41.9 Scoliosis, unspecified; Z3A.39 39 weeks gestation of pregnancy; Z79.899 Other long term (current) drug therapy
CPT/HCPCS: 85025; 86850; 86900; 86901; 88307

== ENCOUNTER 2022-07-27 08:12 | Emergency (ER) | payer BC, OTHER ==
[2022-07-27 08:16] VITALS: PULSE 72
[2022-07-27] MEDS ORDERED: KETOROLAC 15 MG/ML 1 ML VIAL IVP STA ×2 (08:52→10:41)
[2022-07-27] MEDS ORDERED: SODIUM CHLORIDE 0.9% 1,000 ML IV STA (08:52)
[2022-07-27] MEDS ORDERED: ACETAMINOPHEN TAB 500 MG TAB PO STA (08:58)
--- NOTE | 2022-07-27 09:03 | ED ---
General Adult HPI - General Chief complaint: Abdominal Pain Stated complaint: Back/Abd pain Time Seen by Provider: 07/27/22 08:24 Source: patient, RN notes reviewed, old records reviewed Mode of arrival: ambulatory Limitations: no limitations - History of Present Illness Initial comments: This is a nontoxic-appearing 26-year-old female presents to the emergency room with right flank pain radiating to her right groin that started at 2 AM. Patient states feels similar to when she had a kidney stone a year ago. Denies any nausea vomiting or fevers. Does state she has a headache. She is 1 week vaginal delivery no complications of her second child 7 pounds. Is still having some vaginal bleeding. -: hour(s) (7) Location: left (flank) Radiation: non-radiation (left lower abdomen) Improves with: none Worsens with: none Associated Symptoms: headaches - Related Data Home Medications Medication Instructions Recorded Confirmed Pnv No.95/Ferrous Fum/Folic AC 1 each PO DAILY 08/09/17 07/17/22 [ Multivitamin Tablet] Sertraline HCl [Zoloft] 50 mg PO DAILY 06/18/22 07/17/22 Previous Rx's Medication Instructions Recorded Ibuprofen [Motrin] 600 mg PO Q6HR PRN #40 tab 07/19/22 Allergies Allergy/AdvReac Type Severity Reaction Status Date / Time No Known Allergies Allergy Verified 07/27/22 08:16 Patient : No Review of Systems ROS Statement: Those systems with pertinent positive or pertinent negative responses have been documented in the HPI. ROS Other: All systems not noted in ROS Statement are negative. Past Medical History Past Medical History: No Reported History Additional Past Medical History / Comment(s): History concussion, scoliosis; patient has had a previous term vaginal delivery History of Any Multi-Drug Resistant Organisms: None Reported Past Surgical History: Tonsillectomy Past Anesthesia/Blood Transfusion Reactions: No Reported Reaction Past Psychological History: No Psychological Hx Reported Smoking Status: Never smoker Past Alcohol Use History: None Reported Past Drug Use History: None Reported - Past Family History Mother Family Medical History: No Reported History General Exam Limitations: no limitations General appearance: alert, in no apparent distress Head exam: Present: atraumatic, normocephalic Eye exam: Present: normal appearance. Absent: scleral icterus, conjunctival injection, periorbital swelling, periorbital tenderness ENT exam: Present: mucous membranes moist Neck exam: Present: full ROM. Absent: meningismus Respiratory exam: Present: normal lung sounds bilaterally. Absent: respiratory distress, accessory muscle use Cardiovascular Exam: Present: regular rate GI/Abdominal exam: Present: soft. Absent: distended, tenderness, guarding, rebound, rigid Extremities exam: Present: normal capillary refill. Absent: tenderness, pedal edema, calf tenderness Back exam: Present: normal inspection, full ROM. Absent: tenderness, CVA tenderness (R), CVA tenderness (L), rash noted Neurological exam: Present: alert, oriented X3 Psychiatric exam: Present: normal affect, normal mood Skin exam: Present: warm, dry, normal color. Absent: cyanosis, diaphoretic, petechiae, pallor Course Vital Signs 07/27/22 08:13 Temperature 97.6 F Pulse Rate 72 Respiratory 18 Rate Blood Pressure 118/77 - Reevaluation(s) Reevaluation #1: 07/27/22 10:41 Lengthy conversation was held with patient regarding use of Toradol and Flomax along with morphine for pain while breast-feeding. She is agreeable to pumping and dumping for the next 24-48 hours. Time: 10:41 Medical Decision Making - Medical Decision Making Was pt. sent in by a medical professional or institution (, PA, TRANSPORTATION MUSEUM HELPER, urgent care, hospital, or shelter...) When possible be specific @ -No Did you speak to anyone other than the patient for history (EMS, parent, family, police, friend...)? What history was obtained from this source @ -No Did you review nursing and triage notes (agree or disagree)? Why? @ -I reviewed and agree with nursing and triage notes Were old charts reviewed (outside hosp., previous admission, EMS record, old EKG, old radiological studies, urgent care reports/EKG's, shelter records)? Report findings @ -No old charts were reviewed Differential Diagnosis (chest pain, altered mental status, abdominal pain women, abdominal pain men, vaginal bleeding, weakness, fever, dyspnea, syncope, headache, dizziness, GI bleed, back pain, seizure, CVA, palpatations, mental health, musculoskeletal)? @ -UTI, kidney stone, pyelonephritis, hydronephrosis EKG interpreted by me (3pts min.). @ -n/a X-rays interpreted by me (1pt min.). @ -None done CT interpreted by me (1pt min.). @ -Yes stone 4mm obstructing distal right ureter and right pole with hydronephrosis U/S interpreted by me (1pt. min.). @ -None done What testing was considered but not performed or refused? (CT, X-rays, U/S, labs)? Why? @ -None What meds were considered but not given or refused? Why? @ -None Did you discuss the management of the patient with other professionals (professionals i.e. , PA, TRANSPORTATION MUSEUM HELPER, lab, RT, psych nurse, social services specialist, automobile upholsterer apprentice, teacher, district fire management officer, skilled nursing case manager)? Give summary @ -No Was smoking cessation discussed for >3mins.? @ -No Was critical care preformed (if so, how long)? @ -No Were there social determinants of health that impacted care today? How? (Homelessness, low income, unemployed, alcoholism, drug addiction, transportation, low edu. Level, literacy, decrease access to med. care, detention, rehab)? @ -No Was there de-escalation of care discussed even if they declined (Discuss DNR or withdrawal of care, Hospice)? DNR status @ -No What co-morbidities impacted this encounter? (DM, HTN, Smoking, COPD, CAD, Cancer, CVA, ARF, Chemo, Hep., AIDS, mental health diagnosis, sleep apnea, morbid obesity)? @ -, hiistory of kidney stones Was patient admitted / discharged? Hospital course, mention meds given and rou te, prescriptions, significant lab abnormalities, going to OR and other pertinent info. @ -Discharged. 26-year-old female presents with right flank pain radiating to her right groin that started at 2 AM. Patient states feels similar to when she had a kidney stone a year ago. Denies any nausea vomiting or fevers. She is 1 week vaginal delivery no complications of her second child, 7 pounds. Is still having some vaginal bleeding but denies pelvic pain. No dysuria. Patient was initially given IV fluids and she was offered Toradol and declined stating that she is breast-feeding. Upon reassessment patient agreeable to receiving a small dose of morphine for her discomfort. Urinalysis shows cloudy urine with large leukocyte esterase, squamous cells and large blood. No evidence of leukocytosis. Electrolytes show blood glucose of 68 patient was given crackers and fluids. CT shows a moderate to severe right-sided hydronephrosis due to mass effect from enlarged uterus or possibly 4 mm distal right ureter calculus. Underlying medullary nephrocalcinosis is present. There is a additional 2 mm nonobstructing mid pole right renal calculus noted. She was then agreeable to receiving Toradol and Flomax after much discussion and agreed to pump and dump for the next 24 hours. She is agreeable to discharge and strict return parameters were discussed. Case discussed with Dr. Alba Undiagnosed new problem with uncertain prognosis? @ -No Drug Therapy requiring intensive monitoring for toxicity (Heparin, Nitro, Insulin, Cardizem)? @ -No Were any procedures done? @ -No Diagnosis/symptom? @ -Obstructing right renal calculi with hydronephrosis Acute, or Chronic, or Acute on Chronic? @ -Acute Uncomplicated (without systemic symptoms) or Complicated (systemic symptoms)? @ -Uncomplicated Side effects of treatment? @ -No Exacerbation, Progression, or Severe Exacerbation? @ -No Poses a threat to life or bodily function? How? (Chest pain, USA, PR, pneumonia, PE, COPD, DKA, ARF, appy, cholecystitis, CVA, Diverticulitis, Homicidal, Suicidal, threat to staff... and all critical care pts) @ -No - Lab Data Result diagrams: 07/27/22 08:58 07/27/22 08:58 Lab Results 07/27/22 07/27/22 07/27/22 Range/Units 08:58 08:58 09:20 WBC 9.3 (3.8-10.6) k/uL RBC 4.75 (3.80-5.40) m/uL Hgb 13.4 (11.4-16.0) gm/dL Hct 40.6 (34.0-46.0) % MCV 85.6 (80.0-100.0) fL MCH 28.2 (25.0-35.0) pg MCHC 32.9 (31.0-37.0) g/dL RDW 14.1 (11.5-15.5) % Plt Count 297 (150-450) k/uL MPV 7.3 Neutrophils % 77 % Lymphocytes % 18 % Monocytes % 3 % Eosinophils % 1 % Basophils % 0 % Neutrophils # 7.2 (1.3-7.7) k/uL Lymphocytes # 1.7 (1.0-4.8) k/uL Monocytes # 0.3 (0-1.0) k/uL Eosinophils # 0.1 (0-0.7) k/uL Basophils # 0.0 (0-0.2) k/uL Sodium 140 (137-145) mmol/L Potassium 3.8 (3.5-5.1) mmol/L Chloride 108 H (98-107) mmol/L Carbon Dioxide 23 (22-30) mmol/L Anion Gap 9 mmol/L BUN 13 (7-17) mg/dL Creatinine 0.78 (0.52-1.04) mg/dL Est GFR (CKD-EPI)AfAm >90 (>60 ml/min/1.73 sqM) Est GFR (CKD-EPI)NonAf >90 (>60 ml/min/1.73 sqM) Glucose 68 L (74-99) mg/dL Calcium 8.8 (8.4-10.2) mg/dL Total Bilirubin 0.5 (0.2-1.3) mg/dL AST 27 (14-36) U/L ALT 24 (4-34) U/L Alkaline Phosphatase 136 H (38-126) U/L Total Protein 6.9 (6.3-8.2) g/dL Albumin 3.9 (3.5-5.0) g/dL Amylase 54 (30-110) U/L Lipase 135 (23-300) U/L Urine Color Light Red Urine Appearance Cloudy H (Clear) Urine pH 6.0 (5.0-8.0) Ur Specific Ethel 1.050 H (1.001-1.035) Urine Protein 3+ H (Negative) Urine Glucose (UA) Negative (Negative) Urine Ketones Trace H (Negative) Urine Blood Large H (Negative) Urine Nitrite Negative (Negative) Urine Bilirubin Negative (Negative) Urine Urobilinogen 2.0 (<2.0) mg/dL Ur Leukocyte Esterase Large H (Negative) Urine RBC >182 H (0-5) /hpf Urine WBC >182 H (0-5) /hpf Ur Squamous Epith Cells 15 H (0-4) /hpf Amorphous Sediment Rare H (None) /hpf Urine Bacteria Occasional H (None) /hpf Urine Mucus Many H (None) /hpf Disposition Clinical Impression: Kidney stone on right side, Hydronephrosis due to obstruction of ureter Disposition: HOME SELF-CARE Condition: Good Instructions (If sedation given, give patient instructions): Kidney Stones (ED), Hydronephrosis (ED) Additional Instructions: Tylenol as needed for pain or discomfort. You can also take Motrin as needed along with Tylenol with codeine as provided however I recommend pumping and dumping breastmilk for 24 hours if taking these medications. Return to the emergency room with a concerning symptoms including fever, persistent nausea vomiting or increased pain. Follow-up with urology as needed. Is patient prescribed a controlled substance at d/c from ED?: No Referrals: Irvin King DO [Primary Care Provider] - 1-2 days Gold Caraballo MD [STAFF PHYSICIAN] - 1-2 days Time of Disposition: 10:56
[2022-07-27 09:11] LABS: Basophils % (A) 0 %; Eosinophils # (A) 0.1 k/uL (0-0.7); Eosinophils % (A) 1 %; HCT 40.6 % (34.0-46.0); HGB 13.4 gm/dL (11.4-16.0); Lymphocytes # (A) 1.7 k/uL (1.0-4.8); Lymphocytes % (A) 18 %; MCH 28.2 pg (25.0-35.0); MCHC 32.9 g/dL (31.0-37.0); MCV 85.6 fL (80.0-100.0); Mean Platelet Volume 7.3; Monocytes # (A) 0.3 k/uL (0-1.0); Monocytes % (A) 3 %; Neutrophils # (A) 7.2 k/uL (1.3-7.7); Neutrophils % (A) 77 %; Platelet Count 297 k/uL (150-450); RBC 4.75 m/uL (3.80-5.40); RDW 14.1 % (11.5-15.5); WBC 9.3 k/uL (3.8-10.6)
[2022-07-27 09:25] LABS: ALT 24 U/L (4-34); AST 27 U/L (14-36); African American GFR (CKD) >90 (>60 ml/min/1.73 sqM); Albumin 3.9 g/dL (3.5-5.0); Alkaline Phosphatase 136 U/L (38-126); Amylase 54 U/L (30-110); Anion Gap 9 mmol/L; Blood Urea Nitrogen 13 mg/dL (7-17); Calcium 8.8 mg/dL (8.4-10.2); Carbon Dioxide 23 mmol/L (22-30); Chloride 108 mmol/L (98-107); Glucose 68 mg/dL (74-99); Lipase 135 U/L (23-300); Non-African American GFR(CKD) >90 (>60 ml/min/1.73 sqM); Potassium 3.8 mmol/L (3.5-5.1); Sodium 140 mmol/L (137-145); Total Bilirubin 0.5 mg/dL (0.2-1.3); Total Protein 6.9 g/dL (6.3-8.2)
[2022-07-27 09:44] LABS: Amorphous Sediment,Urine Rare /hpf; Appearance,Urine Cloudy (Clear); Bacteria,Urine Occasional /hpf; Bilirubin,Urine Negative (Negative); Blood,Urine Large (Negative); Color,Urine Light Red; Glucose,Urine (UA) Negative (Negative); Ketones,Urine Trace (Negative); Leukocyte Esterase,Urine Large (Negative); Mucus,Urine Many /hpf; Nitrite,Urine Negative (Negative); Protein,Urine 3+ (Negative); RBC,Urine >182 /hpf (0-5); Squamous Epithelial Cell,Urine 15 /hpf (0-4); WBC,Urine >182 /hpf (0-5)
[2022-07-27] MEDS ORDERED: MORPHINE SULFATE 2 MG/ML SYRINGE IVP ONE (09:52)
--- NOTE | 2022-07-27 10:26 | CT ---
EXAMINATION TYPE: CT abdomen pelvis wo con DATE OF EXAM: 07/27/2022 HISTORY: right side flank pain. vaginal delivery last week CT DLP: 381.1 mGycm. Automated Exposure Control for Dose Reduction was Utilized. TECHNIQUE: CT scan of the abdomen and pelvis is performed without oral or IV contrast. COMPARISON: Most recent CT January 27, 2014 FINDINGS: Within the limitations of a non-contrast study, the following observations are made. LUNG BASES: No significant abnormality is appreciated. LIVER/GB: No significant abnormality is appreciated. PANCREAS: No significant abnormality is seen. SPLEEN: No significant abnormality is seen. ADRENALS: No significant abnormality is seen. KIDNEYS: Hyperdense renal pyramids bilaterally. No focal left renal calculus or hydronephrosis. There is 2 mm mid pole right renal calculus coronal image 46. BOWEL: No significant abnormality is seen. GENITAL ORGANS: Heterogeneous enlarged anteverted uterus consistent with history of recent full-term and delivery. There is moderate to severe right-sided hydronephrosis. Poor visualization of distal right ureter. A few tiny rounded calcifications in the pelvis favor phleboliths. Possible 4 m m distal right ureter calculus versus phlebolith on axial image 67. LYMPH NODES: No greater than 1cm abdominal or pelvic lymph nodes are appreciated. OSSEOUS STRUCTURES: No significant abnormality is seen. OTHER: No significant additional abnormality is seen. IMPRESSION: Moderate to severe right-sided hydronephrosis due to mass effect from enlarged uterus or possibly 4 mm distal right ureter calculus. Underlying medullary nephrocalcinosis is present. There i s additional 2 mm nonobstructing mid pole right renal calculus also noted.
[2022-07-27] MEDS ORDERED: TAMSULOSIN 0.4 MG CAP.ER.24H PO STA (10:41)
[2022-07-27] MEDS ORDERED: ACET/COD 300 MG/30 MG STARTER PACK 6 TAB BTL PO STA (10:56)
[2022-07-27 11:39] VITALS: BP 129/77; RESP 16; TEMP 98.4
== END 2022-07-27 11:39 | disposition home or self-care (01) ==
LOC: EC 08:12
DX: N13.2 Hydronephrosis with renal and ureteral calculous obstruction (principal); N29 Other disorders of kidney and ureter in diseases classified elsewhere
CPT/HCPCS: 36415; 80053; 82150; 83690; 85025; 81001; 74176; 99284; 96374; 96375; 96361; J2270; J1885

== ENCOUNTER 2023-10-16 22:04 | Emergency (ER) | payer OTHER | END 2023-10-17 00:08 | disposition left against medical advice (07) | LOC: EC 22:04 | DX: Z53.21 Procedure and treatment not carried out due to patient leaving prior to being seen by health care provider (principal) | CPT/HCPCS: 99499 ==

== ENCOUNTER 2023-10-28 10:16 | Emergency (ER) | payer BC, OTHER ==
--- NOTE | 2023-10-28 10:54 | ED ---
Female Urogenital HPI - General Chief complaint: Vaginal Bleeding Stated complaint: 6wks preg,cramping vag bleeding Time Seen by Provider: 10/28/23 10:52 Source: patient, RN notes reviewed Mode of arrival: ambulatory Limitations: no limitations - History of Present Illness Initial comments: 27-year-old female G3, P2 at approximately 6 weeks gestation presenting for vaginal bleeding x 1 week with associated abdominal cramping. States she was seen at [facility] last week where they diagnosed her with a threatened miscarriage. She is unsure what her blood hCG levels or ultrasound showed. She was instructed to follow-up with her OB, however she was unable to make an appointment. She states over the past 2 days, the bleeding has become heavier, reports passing several small clots. She is also having worsening abdominal cramping, worse on the right side. Denies fever, syncope, vomiting. States her hCG level last week was in the 6000's. - Related Data Home Medications Medication Instructions Recorded Confirmed Pnv No.95/Ferrous Fum/Folic AC 1 each PO DAILY 08/09/17 07/17/22 [ Multivitamin Tablet] Sertraline HCl [Zoloft] 50 mg PO DAILY 06/18/22 07/17/22 Previous Rx's Medication Instructions Recorded Ibuprofen [Motrin] 600 mg PO Q6HR PRN #40 tab 07/19/22 Allergies Allergy/AdvReac Type Severity Reaction Status Date / Time No Known Allergies Allergy Verified 07/27/22 08:16 Review of Systems ROS Statement: Those systems with pertinent positive or pertinent negative responses have been documented in the HPI. ROS Other: All systems not noted in ROS Statement are negative. Past Medical History Past Medical History: No Reported History Additional Past Medical History / Comment(s): History concussion, scoliosis; patient has had a previous term vaginal delivery History of Any Multi-Drug Resistant Organisms: None Reported Past Surgical History: Tonsillectomy Past Anesthesia/Blood Transfusion Reactions: No Reported Reaction Past Psychological History: No Psychological Hx Reported Smoking Status: Never smoker Past Alcohol Use History: None Reported Past Drug Use History: None Reported - Past Family History Mother Family Medical History: No Reported History General Exam Limitations: no limitations General appearance: alert, in no apparent distress Head exam: Present: atraumatic, normocephalic, normal inspection Eye exam: Present: normal appearance, PERRL. Absent: scleral icterus, conjunctival injection, periorbital swelling Respiratory exam: Present: normal lung sounds bilaterally. Absent: respiratory distress, wheezes, rales, rhonchi, stridor Cardiovascular Exam: Present: regular rate, normal rhythm, normal heart sounds. Absent: systolic murmur, diastolic murmur, rubs, gallop, clicks GI/Abdominal exam: Present: soft, normal bowel sounds. Absent: distended, tenderness, guarding, rebound, rigid Back exam: Present: normal inspection. Absent: CVA tenderness (R), CVA tenderness (L) Neurological exam: Present: alert, oriented X3 Psychiatric exam: Present: normal affect, normal mood Skin exam: Present: warm, dry, intact, normal color. Absent: rash Course Vital Signs 10/28/23 10/28/23 10:20 12:15 Temperature 97.9 F 97.8 F Pulse Rate 84 64 Respiratory 18 17 Rate Blood Pressure 129/73 115/60 O2 Sat by Pulse 100 100 Oximetry Medical Decision Making - Medical Decision Making Was pt. sent in by a medical professional or institution (Dr. PA, [employer], urgent care, hospital, or custodial...) When possible be specific @ -No Did you speak to anyone other than the patient for history (EMS, parent, family, police, friend...)? What history was obtained from this source @ -No Did you review nursing and triage notes (agree or disagree)? Why? @ -I reviewed and agree with nursing and triage notes Were old charts reviewed (outside hosp., previous admission, EMS record, old EKG, old radiological studies, urgent care reports/EKG's, custodial records)? Report findings @ -No old charts were reviewed Differential Diagnosis (chest pain, altered mental status, abdominal pain women, abdominal pain men, vaginal bleeding, weakness, fever, dyspnea, syncope, headache, dizziness, GI bleed, back pain, seizure, CVA, palpatations, mental health, musculoskeletal)? @ -Differential Vaginal Bleeding: Spontaneous , threatened , molar , ectopic , bloody show, incompetent cervix, abruptioplacenta, placenta previa, uterine rupture, dysfunctional uterine bleeding, hemorrhage, uterine fibroids, this is not meant to be an all-inclusive list. EKG interpreted by me (3pts min.). @ -None X-rays interpreted by me (1pt min.). @ -None done CT interpreted by me (1pt min.). @ -None done U/S interpreted by me (1pt. min.). @ -Ultrasound reveals no evidence of intrauterine gestational sac What testing was considered but not performed or refused? (CT, X-rays, U/S, labs)? Why? @ -None What meds were considered but not given or refused? Why? @ -RhoGAM not indicated as patient is B+ Did you discuss the management of the patient with other professionals (professionals i.e. , PA, [employer], lab, RT, psych nurse, transition social worker, attorney lawyer, teacher, seismology technical officer, gearcase assembler)? Give summary @ -No Was smoking cessation discussed for >3mins.? @ -No Was critical care preformed (if so, how long)? @ -No Were there social determinants of health that impacted care today? How? (Homelessness, low income, unemployed, alcoholism, drug addiction, transportation, low edu. Level, literacy, decrease access to med. care, long term, rehab)? @ -No Was there de-escalation of care discussed even if they declined (Discuss DNR or withdrawal of care, Hospice)? DNR status @ -No What co-morbidities impacted this encounter? (DM, HTN, Smoking, COPD, CAD, Cancer, CVA, ARF, Chemo, Hep., AIDS, mental health diagnosis, sleep apnea, morbid obesity)? @ -None Was patient admitted / discharged? Hospital course, mention meds given and route, prescriptions, significant lab abnormalities, going to OR and other pertinent info. @ -Patient was discharged. Patient was seen and evaluated for vaginal bleeding at approximately 6 weeks gestation. Vital signs are within normal limits. No abdominal tenderness to palpation. Lab work including CBC, CMP, lactic acid remarkable for hemoglobin of 10. Beta hCG was 698 which is significantly decreased from last week as patient states it was in the 6000's. Pelvic ultrasound reveals no evidence of intrauterine gestational sac. Blood type is B+, therefore RhoGAM is not indicated at this time. Discussed diagnosis of spontaneous with patient. Advised to follow-up in 2 days for repeat hCG levels. Return parameters discussed. Patient is agreeable to plan. Case was discussed with my ED attending Dr. Alba. Patient discharged in stable condition. Undiagnosed new problem with uncertain prognosis? @ -No Drug Therapy requiring intensive monitoring for toxicity (Heparin, Nitro, Insulin, Cardizem)? @ -No Were any procedures done? @ -No Diagnosis/symptom? @ -Spontaneous Acute, or Chronic, or Acute on Chronic? @ -Acute Uncomplicated (without systemic symptoms) or Complicated (systemic symptoms)? @ -Uncomplicated Side effects of treatment? @ -No Exacerbation, Progression, or Severe Exacerbation? @ -No Poses a threat to life or bodily function? How? (Chest pain, [place], [place], pneumonia, PE, COPD, DKA, ARF, appy, cholecystitis, CVA, Diverticulitis, Homicidal, Suicidal, threat to staff... and all critical care pts) @ -Not at this time - Lab Data Result diagrams: 10/28/23 11:12 10/28/23 11:12 Lab Results 10/28/23 10/28/23 10/28/23 Range/Units 11:12 11:12 11:12 WBC 10.0 (3.8-10.6) k/uL RBC 4.16 (3.80-5.40) m/uL Hgb 10.1 L (11.4-16.0) gm/dL Hct 32.3 L (34.0-46.0) % MCV 77.6 L (80.0-100.0) fL MCH 24.3 L (25.0-35.0) pg MCHC 31.4 (31.0-37.0) g/dL RDW 14.7 (11.5-15.5) % Plt Count 221 (150-450) k/uL MPV 6.8 Neutrophils % 81 % Lymphocytes % 14 % Monocytes % 4 % Eosinophils % 1 % Basophils % 0 % Neutrophils # 8.1 H (1.3-7.7) k/uL Lymphocytes # 1.4 (1.0-4.8) k/uL Monocytes # 0.4 (0-1.0) k/uL Eosinophils # 0.1 (0-0.7) k/uL Basophils # 0.0 (0-0.2) k/uL Hypochromasia Moderate Sodium 138 (137-145) mmol/L Potassium 3.9 (3.5-5.1) mmol/L Chloride 110 H (98-107) mmol/L Carbon Dioxide 24 (22-30) mmol/L Anion Gap 4 mmol/L BUN 9 (7-17) mg/dL Creatinine 0.62 (0.52-1.04) mg/dL Est GFR (CKD-EPI)AfAm >90 (>60 ml/min/1.73 sqM) Est GFR (CKD-EPI)NonAf >90 (>60 ml/min/1.73 sqM) Glucose 83 (74-99) mg/dL Plasma Lactic Acid Kraig (0.7-2.0) mmol/L Calcium 8.8 (8.4-10.2) mg/dL Total Bilirubin 0.2 (0.2-1.3) mg/dL AST 21 (14-36) U/L ALT 15 (4-34) U/L Alkaline Phosphatase 49 (38-126) U/L Total Protein 6.2 L (6.3-8.2) g/dL Albumin 3.8 (3.5-5.0) g/dL HCG, Quant 698.6 mIU/mL Urine Color Red Urine Appearance Cloudy H (Clear) Urine pH 6.0 (5.0-8.0) Ur Specific [place] 1.028 (1.001-1.035) Urine Protein 1+ H (Negative) Urine Glucose (UA) Negative (Negative) Urine Ketones Trace H (Negative) Urine Blood Large H (Negative) Urine Nitrite Negative (Negative) Urine Bilirubin Negative (Negative) Urine Urobilinogen <2.0 (<2.0) mg/dL Ur Leukocyte Esterase Large H (Negative) Urine RBC >182 H (0-5) /hpf Urine WBC 34 H (0-5) /hpf Ur Squamous Epith Cells 14 H (0-4) /hpf Urine Mucus Moderate H (None) /hpf Blood Type Blood Type Recheck Bld Type Recheck Status 10/28/23 10/28/23 Range/Units 11:12 11:12 WBC (3.8-10.6) k/uL RBC (3.80-5.40) m/uL Hgb (11.4-16.0) gm/dL Hct (34.0-46.0) % MCV (80.0-100.0) fL MCH (25.0-35.0) pg MCHC (31.0-37.0) g/dL RDW (11.5-15.5) % Plt Count (150-450) k/uL MPV Neutrophils % % Lymphocytes % % Monocytes % % Eosinophils % % Basophils % % Neutrophils # (1.3-7.7) k/uL Lymphocytes # (1.0-4.8) k/uL Monocytes # (0-1.0) k/uL Eosinophils # (0-0.7) k/uL Basophils # (0-0.2) k/uL Hypochromasia Sodium (137-145) mmol/L Potassium (3.5-5.1) mmol/L Chloride (98-107) mmol/L Carbon Dioxide (22-30) mmol/L Anion Gap mmol/L BUN (7-17) mg/dL Creatinine (0.52-1.04) mg/dL Est GFR (CKD-EPI)AfAm (>60 ml/min/1.73 sqM) Est GFR (CKD-EPI)NonAf (>60 ml/min/1.73 sqM) Glucose (74-99) mg/dL Plasma Lactic Acid Kraig 0.7 (0.7-2.0) mmol/L Calcium (8.4-10.2) mg/dL Total Bilirubin (0.2-1.3) mg/dL AST (14-36) U/L ALT (4-34) U/L Alkaline Phosphatase (38-126) U/L Total Protein (6.3-8.2) g/dL Albumin (3.5-5.0) g/dL HCG, Quant mIU/mL Urine Color Urine Appearance (Clear) Urine pH (5.0-8.0) Ur Specific [place] (1.001-1.035) Urine Protein (Negative) Urine Glucose (UA) (Negative) Urine Ketones (Negative) Urine Blood (Negative) Urine Nitrite (Negative) Urine Bilirubin (Negative) Urine Urobilinogen (<2.0) mg/dL Ur Leukocyte Esterase (Negative) Urine RBC (0-5) /hpf Urine WBC (0-5) /hpf Ur Squamous Epith Cells (0-4) /hpf Urine Mucus (None) /hpf Blood Type B Positive Blood Type Recheck B Pos Bld Type Recheck Status No Disposition Clinical Impression: Spontaneous Disposition: HOME SELF-CARE Condition: Stable Instructions (If sedation given, give patient instructions): Miscarriage (ED) Additional Instructions: Follow-up as discussed. Please return to the Emergency Department if symptoms worsen or any other concerns. Is patient prescribed a controlled substance at d/c from ED?: No Referrals: Irvin King DO [Primary Care Provider] - 1-2 days Time of Disposition: 13:03
[2023-10-28 11:33] LABS: Basophils % (A) 0 %; Eosinophils # (A) 0.1 k/uL (0-0.7); Eosinophils % (A) 1 %; HCT 32.3 % (34.0-46.0); HGB 10.1 gm/dL (11.4-16.0); Hypochromasia Moderate; Lymphocytes # (A) 1.4 k/uL (1.0-4.8); Lymphocytes % (A) 14 %; MCH 24.3 pg (25.0-35.0); MCHC 31.4 g/dL (31.0-37.0); MCV 77.6 fL (80.0-100.0); Mean Platelet Volume 6.8; Monocytes # (A) 0.4 k/uL (0-1.0); Monocytes % (A) 4 %; Neutrophils # (A) 8.1 k/uL (1.3-7.7); Neutrophils % (A) 81 %; Platelet Count 221 k/uL (150-450); RBC 4.16 m/uL (3.80-5.40); RDW 14.7 % (11.5-15.5)
[2023-10-28 11:42] LABS: ALT 15 U/L (4-34); AST 21 U/L (14-36); African American GFR (CKD) >90 (>60 ml/min/1.73 sqM); Albumin 3.8 g/dL (3.5-5.0); Alkaline Phosphatase 49 U/L (38-126); Anion Gap 4 mmol/L; Blood Urea Nitrogen 9 mg/dL (7-17); Calcium 8.8 mg/dL (8.4-10.2); Carbon Dioxide 24 mmol/L (22-30); Chloride 110 mmol/L (98-107); Glucose 83 mg/dL (74-99); Non-African American GFR(CKD) >90 (>60 ml/min/1.73 sqM); Potassium 3.9 mmol/L (3.5-5.1); Sodium 138 mmol/L (137-145); Total Bilirubin 0.2 mg/dL (0.2-1.3); Total Protein 6.2 g/dL (6.3-8.2)
--- NOTE | 2023-10-28 11:55 | US ---
EXAMINATION TYPE: Transabdominal DATE OF EXAM: 10/28/2023 11:39 AM COMPARISON: NONE CLINICAL INDICATION: Female, 27 years old with history of vaginal bleeding in ; Vaginal blee ding, cramping x 1 week. . EXAM PERFORMED: Transvaginal (TV) and Transabdominal (TA) EXAM MEASUREMENTS: GESTATIONAL AGE / DATING Physician Established: Not yet established. Dates by LMP: (6 weeks/5 days) EDC: 06/17/2024 Dates by First Scan: This is first scan Dates by Current Scan for: No gestational sac seen at this time. MATERNAL ANATOMY Uterus: 10.6 x 6.6 x 6.2 cm. Endometrium measures approximately 1.12 cm -- there appears to be possi ble hypoechoic material without vascularity in the endometrium: 5.7 x 1.8 x 1.9 cm. Right Ovary: Not seen Left Ovary: 3.2 x 1.9 x 2.0 cm. Post CDS / Adnexa: Free fluid seen in cul de sac Presence of free fluid: Yes, in cul de sac Presence of corpus luteal cyst: not seen Presence of subchorionic bleed: N/A GESTATION / SURVEY CRL: Not seen MSD: Not seen Yolk Sac (normal less than 6mm): Not seen Heart Rate: Not seen Rhythm: Not seen IUP: No gestational sac seen at this time. Date of LMP: 09/11/2023 Beta HcG (if available): Not available IMPRESSION: No evidence of intrauterine gestational sac, correlate with B-hCG. If positive, this could represent early , ectopic or spontaneous . Follow up pelvic ultrasound in 5-7 days a nd serial beta hCG studies are recommended.
[2023-10-28 11:58] LABS: HCG,Quantitative Serum 698.6 mIU/mL
[2023-10-28 12:04] LABS: Appearance,Urine Cloudy (Clear); Bilirubin,Urine Negative (Negative); Blood,Urine Large (Negative); Color,Urine Red; Glucose,Urine (UA) Negative (Negative); Ketones,Urine Trace (Negative); Leukocyte Esterase,Urine Large (Negative); Mucus,Urine Moderate /hpf; Nitrite,Urine Negative (Negative); Protein,Urine 1+ (Negative); RBC,Urine >182 /hpf (0-5); Specific Gravity,Urine 1.028 (1.001-1.035); Squamous Epithelial Cell,Urine 14 /hpf (0-4); Urobilinogen,Urine <2.0 mg/dL (<2.0); WBC,Urine 34 /hpf (0-5)
[2023-10-28 13:32] VITALS: BP 111/69; PULSE 70; RESP 18; TEMP 98
== END 2023-10-28 13:32 | disposition home or self-care (01) ==
LOC: EC 10:16
DX: O03.9 Complete or unspecified spontaneous abortion without complication (principal); N93.9 Abnormal uterine and vaginal bleeding, unspecified; Z90.89 Acquired absence of other organs; Z3A.01 Less than 8 weeks gestation of pregnancy
CPT/HCPCS: 36415; 76801; 76817; 80053; 81001; 83605; 84702; 85025; 86900; 86901; 87086; 99284

== ENCOUNTER 2023-11-27 13:18 | Emergency (ER) | payer OTHER ==
[2023-11-27 13:25] VITALS: RESP 16; TEMP 97.9
--- NOTE | 2023-11-27 13:54 | ED ---
Dizziness HPI - General Chief Complaint: Dizziness Stated Complaint: Dizziness-sent by PCP Time Seen by Provider: 11/27/23 13:38 Source: patient, RN notes reviewed Mode of arrival: wheelchair Limitations: no limitations - History of Present Illness Initial Comments: 28-year-old female presenting for lightheadedness x 1 day. States she has had 3 episodes of feeling like she is going to pass out. During the episodes, she states she gets "hot flashes". Over the past 3 days, she has been having a constant headache located at the top of her head. She also states she started Depo shot 3 months ago and has had intermittent vaginal bleeding since then, so she is concerned about her hemoglobin today. States she has had cough and nasal congestion for the past 1.5 weeks with generalized shortness of breath. She feels as though she is "winded more easily". Denies shortness of breath currently, chest pain, pain with inspiration. Denies recent surgery, recent travel. She is a non-smoker. Denies history of blood clots. Denies fevers, chills, vomiting, chest pain - Related Data Home Medications Medication Instructions Recorded Confirmed Ferrous Sulfate [Feosol] 325 mg PO BID 11/27/23 11/27/23 metroNIDAZOLE [Flagyl] 500 mg PO BID 11/27/23 11/27/23 Allergies Allergy/AdvReac Type Severity Reaction Status Date / Time No Known Allergies Allergy Verified 11/27/23 14:09 Review of Systems ROS Statement: Those systems with pertinent positive or pertinent negative responses have been documented in the HPI. ROS Other: All systems not noted in ROS Statement are negative. Past Medical History Past Medical History: No Reported History Additional Past Medical History / Comment(s): History concussion, scoliosis; patient has had a previous term vaginal delivery History of Any Multi-Drug Resistant Organisms: None Reported Past Surgical History: Tonsillectomy Past Anesthesia/Blood Transfusion Reactions: No Reported Reaction Past Psychological History: No Psychological Hx Reported Smoking Status: Never smoker Past Alcohol Use History: None Reported Past Drug Use History: None Reported - Past Family History Mother Family Medical History: No Reported History General Exam Limitations: no limitations General appearance: alert, in no apparent distress Head exam: Present: atraumatic, normocephalic, normal inspection Eye exam: Present: normal appearance, PERRL, EOMI. Absent: scleral icterus, conjunctival injection, periorbital swelling ENT exam: Present: normal exam, mucous membranes moist Neck exam: Present: normal inspection. Absent: tenderness, meningismus, lymphadenopathy Respiratory exam: Present: normal lung sounds bilaterally. Absent: respiratory distress, wheezes, rales, rhonchi, stridor Cardiovascular Exam: Present: regular rate, normal rhythm, normal heart sounds. Absent: systolic murmur, diastolic murmur, rubs, gallop, clicks GI/Abdominal exam: Present: soft, normal bowel sounds. Absent: distended, tenderness, guarding, rebound, rigid Neurological exam: Present: alert, oriented X3, CN II-XII intact Psychiatric exam: Present: normal affect, normal mood Skin exam: Present: warm, dry, intact, normal color. Absent: rash Course Vital Signs 11/27/23 13:20 Temperature 97.9 F Pulse Rate 74 Respiratory 16 Rate Blood Pressure 113/71 O2 Sat by Pulse 100 Oximetry EKG Findings - EKG Results: EKG: interpreted by BENY (Normal sinus rhythm with no ST changes. Ventricular rate 69 bpm, RI interval 145, QRS duration 100, QT/QTc 382/401) Medical Decision Making - Medical Decision Making Was pt. sent in by a medical professional or institution (, PA, WAXER, urgent care, hospital, or detention...) When possible be specific @ -[No] Did you speak to anyone other than the patient for history (EMS, parent, family, police, friend...)? What history was obtained from this source @ -[No] Did you review nursing and triage notes (agree or disagree)? Why? @ -[I reviewed and agree with nursing and triage notes] Were old charts reviewed (outside hosp., previous admission, EMS record, old EKG, old radiological studies, urgent care reports/EKG's, detention records)? Report findings @ -[No old charts were reviewed] Differential Diagnosis (chest pain, altered mental status, abdominal pain women, abdominal pain men, vaginal bleeding, weakness, fever, dyspnea, syncope, headache, dizziness, GI bleed, back pain, seizure, CVA, palpatations, mental health, musculoskeletal)? @ -Differential Dizziness: Benign paroxysmal positional Vertigo, Meniere's disease, otitis media, acoustic neuroma, vertebrobasilar insufficiency, cerebellar stroke, encephalitis, hypovolemic, arrhythmia, coronary artery syndrome, anemia, this is not meant to be an all-inclusive list EKG interpreted by me (3pts min.). @ -[As above] X-rays interpreted by me (1pt min.). @ -Chest x-ray reveals no acute process CT interpreted by me (1pt min.). @ -CT brain reveals no acute intracranial abnormality U/S interpreted by me (1pt. min.). @ -[None done] What testing was considered but not performed or refused? (CT, X-rays, U/S, labs)? Why? @ -[None] What meds were considered but not given or refused? Why? @ -Patient declined pain medication Did you discuss the management of the patient with other professionals (professionals i.e. , PA, WAXER, lab, RT, psych nurse, social worker masters, grid inspector, teacher, product safety officer, case assistant)? Give summary @ -[No] Was smoking cessation discussed for >3mins.? @ -[No] Was critical care preformed (if so, how long)? @ -[No] Were there social determinants of health that impacted care today? How? (Homelessness, low income, unemployed, alcoholism, drug addiction, transport ation, low edu. Level, literacy, decrease access to med. care, penitentiary, rehab)? @ -[No] Was there de-escalation of care discussed even if they declined (Discuss DNR or withdrawal of care, Hospice)? DNR status @ -[No] What co-morbidities impacted this encounter? (DM, HTN, Smoking, COPD, CAD, Cancer, CVA, ARF, Chemo, Hep., AIDS, mental health diagnosis, sleep apnea, morbid obesity)? @ -[None] Was patient admitted / discharged? Hospital course, mention meds given and route, prescriptions, significant lab abnormalities, going to OR and other pertinent info. @ -Discharge. This is a 28-year-old female with no significant past medical history presenting with lightheadedness x 1 day. She is concerned about her hemoglobin as she states she has had vaginal bleeding intermittently since she began Depo-Provera shot 3 months ago. Vital signs are within normal limits. EKG reveals normal sinus rhythm with no ST changes. Chest x-ray reveals no acute process. CBC, CMP, troponin unremarkable. Hemoglobin is stable at 10. Cepheid negative. Urine negative. CT brain reveals no acute intra cranial abnormality. Discussed findings with patient. I suspect symptoms are related to vaginal bleeding versus recent URI, no sign of emergent etiology on examination today. Instructed to follow-up with PCP in 1 week for repeat hemoglobin. Strict return precautions discussed and patient is agreeable to plan. Case was discussed with my ED attending Dr. Car. Patient is discharged in stable condition. Undiagnosed new problem with uncertain prognosis? @ -[No] Drug Therapy requiring intensive monitoring for toxicity (Heparin, Nitro, Insulin, Cardizem)? @ -[No] Were any procedures done? @ -[No] Diagnosis/symptom? @ -Lightheadedness Acute, or Chronic, or Acute on Chronic? @ -Acute Uncomplicated (without systemic symptoms) or Complicated (systemic symptoms)? @ -Uncomplicated Side effects of treatment? @ -[No] Exacerbation, Progression, or Severe Exacerbation? @ -[No] Poses a threat to life or bodily function? How? (Chest pain, [place], [place], pneumonia, PE, COPD, DKA, ARF, appy, cholecystitis, CVA, Diverticulitis, Homicidal, Suicidal, threat to staff... and all critical care pts) @ -[No] - Lab Data Result diagrams: 11/27/23 14:12 11/27/23 14:12 Lab Results 11/27/23 11/27/23 11/27/23 Range/Units 14:12 14:12 14:12 WBC 6.1 (3.8-10.6) k/uL RBC 4.19 (3.80-5.40) m/uL Hgb 10.0 L (11.4-16.0) gm/dL Hct 32.1 L (34.0-46.0) % MCV 76.6 L (80.0-100.0) fL MCH 24.0 L (25.0-35.0) pg MCHC 31.3 (31.0-37.0) g/dL RDW 16.4 H (11.5-15.5) % Plt Count 218 (150-450) k/uL MPV 7.4 Neutrophils % 75 % Lymphocytes % 17 % Monocytes % 4 % Eosinophils % 2 % Basophils % 0 % Neutrophils # 4.6 (1.3-7.7) k/uL Lymphocytes # 1.1 (1.0-4.8) k/uL Monocytes # 0.2 (0-1.0) k/uL Eosinophils # 0.1 (0-0.7) k/uL Basophils # 0.0 (0-0.2) k/uL Hypochromasia Moderate Anisocytosis Slight Microcytosis Slight Sodium 136 L (137-145) mmol/L Potassium 4.1 (3.5-5.1) mmol/L Chloride 110 H (98-107) mmol/L Carbon Dioxide 21 L (22-30) mmol/L Anion Gap 5 mmol/L BUN 11 (7-17) mg/dL Creatinine 0.65 (0.52-1.04) mg/dL Est GFR (CKD-EPI)AfAm >90 (>60 ml/min/1.73 sqM) Est GFR (CKD-EPI)NonAf >90 (>60 ml/min/1.73 sqM) Glucose 86 (74-99) mg/dL Calcium 9.0 (8.4-10.2) mg/dL Total Bilirubin 0.4 (0.2-1.3) mg/dL AST 24 (14-36) U/L ALT 14 (4-34) U/L Alkaline Phosphatase 52 (38-126) U/L Troponin I (0.000-0.034) ng/mL Total Protein 6.6 (6.3-8.2) g/dL Albumin 4.2 (3.5-5.0) g/dL Urine HCG, Qual (Not Detectd) Influenza Type A (PCR) Not Detected (Not Detectd) Influenza Type B (PCR) Not Detected (Not Detectd) RSV (PCR) Not Detected (Not Detectd) SARS-CoV-2 (PCR) Not Detected (Not Detectd) 11/27/23 11/27/23 Range/Units 14:12 14:17 WBC (3.8-10.6) k/uL RBC (3.80-5.40) m/uL Hgb (11.4-16.0) gm/dL Hct (34.0-46.0) % MCV (80.0-100.0) fL MCH (25.0-35.0) pg MCHC (31.0-37.0) g/dL RDW (11.5-15.5) % Plt Count (150-450) k/uL MPV Neutrophils % % Lymphocytes % % Monocytes % % Eosinophils % % Basophils % % Neutrophils # (1.3-7.7) k/uL Lymphocytes # (1.0-4.8) k/uL Monocytes # (0-1.0) k/uL Eosinophils # (0-0.7) k/uL Basophils # (0-0.2) k/uL Hypochromasia Anisocytosis Microcytosis Sodium (137-145) mmol/L Potassium (3.5-5.1) mmol/L Chloride (98-107) mmol/L Carbon Dioxide (22-30) mmol/L Anion Gap mmol/L BUN (7-17) mg/dL Creatinine (0.52-1.04) mg/dL Est GFR (CKD-EPI)AfAm (>60 ml/min/1.73 sqM) Est GFR (CKD-EPI)NonAf (>60 ml/min/1.73 sqM) Glucose (74-99) mg/dL Calcium (8.4-10.2) mg/dL Total Bilirubin (0.2-1.3) mg/dL AST (14-36) U/L ALT (4-34) U/L Alkaline Phosphatase (38-126) U/L Troponin I <0.012 (0.000-0.034) ng/mL Total Protein (6.3-8.2) g/dL Albumin (3.5-5.0) g/dL Urine HCG, Qual Not Detected (Not Detectd) Influenza Type A (PCR) (Not Detectd) Influenza Type B (PCR) (Not Detectd) RSV (PCR) (Not Detectd) SARS-CoV-2 (PCR) (Not Detectd) Disposition Clinical Impression: Lightheadedness Disposition: HOME SELF-CARE Condition: Stable Instructions (If sedation given, give patient instructions): Dizziness (ED) Additional Instructions: Follow-up with PCP in 1 week for repeat hemoglobin. Follow-up with NIGHT NURSE reg arding vaginal bleeding likely due to Depo-Provera. Please return to the Emergency Department if symptoms worsen or any other concerns. Is patient prescribed a controlled substance at d/c from ED?: No Referrals: Irvin King DO [Primary Care Provider] - 1-2 days Time of Disposition: 16:08
--- NOTE | 2023-11-27 14:04 | XR ---
EXAMINATION TYPE: XR chest 2V DATE OF EXAM: 11/27/2023 COMPARISON: NONE TECHNIQUE: PA and lateral views submitted. HISTORY: Cough FINDINGS: The lungs are clear and there is no pneumothorax, pleural effusion, or focal pneumonia. Heart size normal and no overt failure. A scoliotic curvature of the spine. IMPRESSION: 1. No acute process. [facility], , 11/27/2023 2:02 PM
[2023-11-27 14:24] LABS: Anisocytosis Slight; Basophils % (A) 0 %; Eosinophils # (A) 0.1 k/uL (0-0.7); Eosinophils % (A) 2 %; HCT 32.1 % (34.0-46.0); Hypochromasia Moderate; Lymphocytes # (A) 1.1 k/uL (1.0-4.8); Lymphocytes % (A) 17 %; MCHC 31.3 g/dL (31.0-37.0); MCV 76.6 fL (80.0-100.0); Mean Platelet Volume 7.4; Microcytosis Slight; Monocytes # (A) 0.2 k/uL (0-1.0); Monocytes % (A) 4 %; Neutrophils # (A) 4.6 k/uL (1.3-7.7); Neutrophils % (A) 75 %; Platelet Count 218 k/uL (150-450); RBC 4.19 m/uL (3.80-5.40); RDW 16.4 % (11.5-15.5); WBC 6.1 k/uL (3.8-10.6)
[2023-11-27 14:33] LABS: ALT 14 U/L (4-34); AST 24 U/L (14-36); African American GFR (CKD) >90 (>60 ml/min/1.73 sqM); Albumin 4.2 g/dL (3.5-5.0); Alkaline Phosphatase 52 U/L (38-126); Anion Gap 5 mmol/L; Blood Urea Nitrogen 11 mg/dL (7-17); Carbon Dioxide 21 mmol/L (22-30); Chloride 110 mmol/L (98-107); Glucose 86 mg/dL (74-99); Non-African American GFR(CKD) >90 (>60 ml/min/1.73 sqM); Potassium 4.1 mmol/L (3.5-5.1); Sodium 136 mmol/L (137-145); Total Bilirubin 0.4 mg/dL (0.2-1.3); Total Protein 6.6 g/dL (6.3-8.2)
--- NOTE | 2023-11-27 15:41 | CT ---
EXAMINATION TYPE: CT brain wo con DATE OF EXAM: 11/27/2023 COMPARISON: None HISTORY: headache, dizzy spells and low hemoglobin CT DLP: 1096.[address] of the brain was performed. The ventricles, basal cisterns and sulci overlying the cerebral convexities demonstrate a normal appe arance. There is no evidence for intracranial hemorrhage or sulcal effacement. No mass effects are seen. Osseous calvarium is intact. If symptoms persist consider MRI as clinically warranted. IMPRESSION: 1. No acute intracranial process is seen at this time. [facility], , 11/27/2023 3:39 PM
[2023-11-27 16:35] VITALS: BP 109/69; PULSE 70
== END 2023-11-27 16:35 | disposition home or self-care (01) ==
LOC: EC 13:18
DX: R42 Dizziness and giddiness (principal)
CPT/HCPCS: 36415; 70450; 71046; 80053; 81025; 84484; 85025; 87636; 93005; 99284